=== PATIENT | male | born 1965 | race Caucasian/White ===

== ENCOUNTER 2016-05-10 13:15 | Emergency (ER) | payer SELFPAY ==
--- NOTE | 2016-05-10 13:32 | ED.PDOC ---
History of Present Illness - General Chief Complaint: Neuro Symptoms/Deficits Stated Complaint: Tingling on L arm/leg X3 days that is worsening Time Seen by Provider: 05/10/16 13:28 Source: patient, RN notes reviewed, Vital Signs reviewed - History of Present Illness Initial Comments: Patient reports tingling of L arm and leg for 3 days. Worse at night and getting progressively worse. + slight frontal headache. + dizziness. No weakness or change in gait noted. Vision is more blurred. No change in speech. Timing/Duration: constant, increasing, other - 3 days Severity: mild Improving Factors: nothing Worsening Factors: nothing Associated Symptoms: numbness in legs/feet, paresthesia, tingling in legs/feet, vision changes Allergies/Adverse Reactions: Allergies Penicillins Allergy (Verified 05/10/16 13:58) Home Medications: Ambulatory Orders Amlodipine Besylate 5 mg PO DAILY #30 tab 05/10/16 Lisinopril & Hydrochlorothiazi [Lisinopril/Hctz 20-25 mg] 1 tab PO DAILY Lisinopril & Hydrochlorothiazi [Lisinopril/Hctz 20-25 mg] 1 tab PO DAILY #30 tab 05/10/16 Review of Systems - Review of Systems Constitutional: States: no symptoms reported. Denies: chills, diaphoresis, fever, malaise, weakness EENTM: States: blurred vision. Denies: eye pain, tearing, double vision, ear pain, ear discharge, nose pain, nose congestion, throat pain, throat swelling, mouth pain, mouth swelling Respiratory: States: no symptoms reported. Denies: cough, short of breath Cardiology: States: no symptoms reported. Denies: chest pain, palpitations, syncope Gastrointestinal/Abdominal: States: no symptoms reported. Denies: abdominal pain, nausea, vomiting Musculoskeletal: States: no symptoms reported. Denies: back pain, muscle pain, muscle stiffness, neck pain Skin: States: no symptoms reported Neurological: States: see HPI, headache, paresthesia, tingling. Denies: pre- existing deficit, seizure, tremors, weakness Endocrine: States: no symptoms reported, other - Stopped Thyroid medication 2 months ago due to diarrhea Family Medical History - Family History Father Living Status: Still Living Hx Family Hypertension: No Physical Exam - Physical Exam General Appearance: Alert, Anxious, Comfortable, No apparent distress, Well Developed, Well Groomed, Well Hydrated, Well Nourished Eye Exam: bilateral normal ENT Exam: hearing grossly normal, pharynx normal Neck: non-tender, full range of motion, supple, normal inspection, trachea midline Respiratory: chest non-tender, lungs clear, normal breath sounds, no respiratory distress, no accessory muscle use Cardiovascular/Chest: normal peripheral pulses, regular rate, rhythm, no edema, no gallop, no JVD, no murmur Peripheral Pulses: radial,right: 2+, radial,left: 2+, posterior tibialis,right: 2+, posterior tibialis,left: 2+ Gastrointestinal/Abdominal: normal bowel sounds, non tender, soft, no organomegaly, no pulsatile mass Extremities Exam: non-tender, normal range of motion, no evidence of injury, no edema Mental Status: alert, oriented x 3 solar system installer Exam: normal hearing, normal speech, PERRL Coordination/Gait: normal gait Motor/Sensory: no motor deficit, no sensory deficit, no pronator drift Skin Exam: normal color, warm/dry Progress - Progress Progress: 05/10/16 14:21 Work up so far shows normal CT of head, EKG has no acute changed. Labs showed low Na & Cl and slightly elevated CPK. Will give IV fluids and possibly adjust BP medications. 05/10/16 15:59 BP improved, Symptoms resolved. Advised to increase salt in his diet, decrease alcohol use. Follow up with PCP within a week. Add Amlodipine to his Lisinopril and get BP cuff to monitor at home. - EKG/XRAY/CT EKG: Sinus, no ST T wave changes Comments: NSR with no acute changes. HR 98 Departure - Departure Clinical Impression: Hypertensive urgency, Intermittent paresthesia of left hand and foot Time of Disposition: 16:02 Disposition: Discharge to Home or Self Care Condition: Good Instructions: DI for Malignant Hypertension Diet: resume usual diet, other - Increase salt intake and decrease alcohol intake Activity: increase activity as tolerated Referrals: [Primary Care Provider] - 1 Week Prescriptions: Amlodipine Besylate 5 mg PO DAILY #30 tab Lisinopril & Hydrochlorothiazi [Lisinopril/Hctz 20-25 mg] 1 tab PO DAILY #30 tab Home Medications: Ambulatory Orders Amlodipine Besylate 5 mg PO DAILY #30 tab 05/10/16 Lisinopril & Hydrochlorothiazi [Lisinopril/Hctz 20-25 mg] 1 tab PO DAILY Lisinopril & Hydrochlorothiazi [Lisinopril/Hctz 20-25 mg] 1 tab PO DAILY #30 tab 05/10/16 Additional Instructions: Check blood pressure daily at home and keep log to take to your doctor visit.
--- NOTE | 2016-05-10 14:06 | CT ---
EXAM DESCRIPTION: CT HEAD WITHOUT IV CONTRAST CLINICAL HISTORY: Tingling on L side with dizziness/ R/O stroke COMPARISON: None. TECHNIQUE: Noncontrast transaxial CT images of the head are obtained from base to vertex. CT scan was done according to ALARA (As Low as Reasonably Achievable). FINDINGS: The midline structures are not displaced. The sulci are age appropriate. The lateral, third, and fourth ventricles are normal in size, shape, and anatomic positioning. There is no evidence of mass, mass effect, hydrocephalus, or acute intracranial hemorrhage. No abnormal extra axial fluid collections are seen. Normal dacosta-white differentiation is seen. The visualized bone windows show no depressed skull fracture or significant abnormality. Calcifications of the intracranial carotid arteries are seen. Mild mucosal thickening is seen in the maxillary sinuses bilaterally with question of small air-fluid levels. IMPRESSION: 1. No acute abnormality is seen on noncontrast CT of the head. 2. There is at least mild subacute to chronic sinusitis of the maxillary sinuses with question of air-fluid level suggesting acute sinusitis. Electronically signed by: Jordan Atwood MD 05/10/2016 14:04
[2016-05-10] MEDS ORDERED: SODIUM CHLORIDE 0.9% 1000ML 1,000 ML IVS ONE (14:10)
[2016-05-10] MEDS ORDERED: amLODIPine BESYLATE 5 MG TAB PO ONE (14:45)
[2016-05-10 15:48] VITALS: TEMP 98; O2SAT 95
[2016-05-10 16:17] VITALS: BP 139/96
== END 2016-05-10 16:10 | disposition home or self-care (01) ==
LOC: ER 13:15
DX: I16.0 Hypertensive urgency (principal); R20.2 Paresthesia of skin; Z88.0 Allergy status to penicillin
CPT/HCPCS: 70450; 80053; 82550; 82553; 84484; 85025; 93005; J7030

== ENCOUNTER 2016-06-25 03:08 | Emergency (ER) | payer SELFPAY ==
[2016-06-25] MEDS ORDERED: SODIUM CHLORIDE 0.9% 1000ML 1,000 ML ONE (03:20)
[2016-06-25 03:23] VITALS: TEMP 98.9
--- NOTE | 2016-06-25 03:25 | ED.PDOC ---
History of Present Illness - General Source: patient, RN notes reviewed, Vital Signs reviewed, EMS Exam Limitations: no limitations - History of Present Illness Initial Comments: Patient woke up because "he felt like he was going to pass out". Patient reports that he rolled over in bed, got dizzy and felt like he was going to pass out. Got up and got a drink of water. Continued to feel like he was going to pass out so he called 911. Did nothing out of the ordinary yesterday. He worked, ate dinner and drank 6 beers which according to him is "not much". Timing/Duration: 1/2 hour Severity: moderate Improving Factors: nothing Worsening Factors: nothing Associated Symptoms: chest pain - Mild left sided pressure, now resolvd., other - Feels hot <Renita Hermosillo - Last Filed: 06/25/16 06:01> <Maykel Schmidt - Last Filed: 06/25/16 08:14> - General Chief Complaint: Blood Pressure Problem Stated Complaint: dizzy, high blood pressure Time Seen by Provider: 06/25/16 03:12 - History of Present Illness Allergies/Adverse Reactions: Allergies Penicillins Allergy (Verified 05/10/16 13:58) Home Medications: Ambulatory Orders Amlodipine Besylate 5 mg PO DAILY #30 tab 05/10/16 Lisinopril & Hydrochlorothiazi [Lisinopril/Hctz 20-25 mg] 1 tab PO DAILY Lisinopril & Hydrochlorothiazi [Lisinopril/Hctz 20-25 mg] 1 tab PO DAILY #30 tab 05/10/16 Meclizine HCl [Meclizine 25] 25 mg PO Q6H PRN #20 tab 06/25/16 predniSONE [Prednisone] 20 mg PO DAILY #3 tab 06/25/16 Review of Systems - Review of Systems Constitutional: States: no symptoms reported EENTM: States: no symptoms reported Respiratory: States: no symptoms reported. Denies: short of breath Cardiology: States: chest pain. Denies: edema, palpitations, syncope Gastrointestinal/Abdominal: States: no symptoms reported Genitourinary: States: no symptoms reported Musculoskeletal: States: no symptoms reported Skin: States: no symptoms reported Neurological: States: other - Dizzy, felt like he was going to pass out.. Denies: headache, numbness, paresthesia Endocrine: States: no symptoms reported Hematologic/Lymphatic: States: no symptoms reported <Renita Hermosillo Last Filed: 06/25/16 06:01> Past Medical History (General) - Patient Medical History Hx Stroke: No Hx Asthma: No Hx of COPD: No Hx Congestive Heart Failure: No Hx Hypertension: Yes Hx Thyroid Disease: Yes - Quit taking Thyroid meds - cant afford them Hx Diabetes: No Hx MRSA: No - Vaccination History Hx Tetanus, Diphtheria Vaccination: No Hx Influenza Vaccination: No Hx Pneumococcal Vaccination: No - Social History Hx Tobacco Use: Yes - Dips snuff daily Hx Chewing Tobacco Use: Yes - Daily Hx Alcohol Use: Yes - 12 pack of beers daily <Renita Hermosillo Last Filed: 06/25/16 06:01> Family Medical History - Family History Father Living Status: Still Living Hx Family Hypertension: No <Renita Hermosillo Last Filed: 06/25/16 06:01> Physical Exam - Physical Exam General Appearance: Anxious, No apparent distress, Well Developed, Well Groomed , Well Hydrated, Well Nourished Eye Exam: bilateral normal Ears, Nose, Throat: hearing grossly normal, normal ENT inspection, normal pharynx Neck: non-tender, full range of motion, supple, normal inspection Respiratory: chest non-tender, lungs clear, normal breath sounds, no respiratory distress, no accessory muscle use Cardiovascular/Chest: regular rate, rhythm, no edema, no gallop, no JVD, no murmur Gastrointestinal/Abdominal: normal bowel sounds, non tender, soft, no organomegaly, no pulsatile mass Extremity: normal range of motion, non-tender, normal inspection, no pedal edema Neurologic: no motor/sensory deficits, alert, normal mood/affect, oriented x 3 Skin Exam: diaphoresis Lymphatic: no adenopathy <Renita Hermosillo Last Filed: 06/25/16 06:01> Progress - Progress Progress: 06/25/16 03:31 Patient is very anxious. Will give Ativan. 06/25/16 04:04 Patient reports he is feeling better, calmer after the Ativan. BP and pulse are still elevated. Will give dose of Labetolol 06/25/16 04:05 Initial set of cardiac enzymes show elevated CPK and CK-MB with normal Troponin. Will repeat cardiac enzymes in 3 hours. 06/25/16 04:23 BP improved @ 143/99 with HR 95 Patient is sleeping comfortably 06/25/16 06:02 BP 160/105 - EKG/XRAY/CT EKG: Sinus, Tachy, Unchanged from - 05/10/16 Comments: with PVC's <Renita Hermosillo - Last Filed: 06/25/16 06:01> - Progress Progress: 06/25/16 08:06 06/25/16 03:30 EKG STAT Laboratory Results - last 24 hr 06/25/16 06/25/16 03:30 07:09 WBC 5.5 RBC 5.00 Hgb 15.0 Hct 44.6 MCV 89.2 MCH 29.9 MCHC 33.6 RDW 14.8 H Plt Count 182 MPV 6.7 L Absolute Neuts (auto) 4.20 Absolute Lymphs (auto) 0.70 L Absolute Monos (auto) 0.50 Absolute Eos (auto) 0.00 Absolute Basos (auto) 0.00 Neutrophils % 76.6 Lymphocytes % 13.3 L Monocytes % 9.2 H Eosinophils % 0.2 L Basophils % 0.7 Sodium 135 Potassium 3.8 Chloride 102 Carbon Dioxide 23 Anion Gap 13.8 BUN 11 Creatinine 0.99 BUN/Creatinine Ratio 11.1 Random Glucose 138 H Serum Osmolality 271.7 L Calcium 9.0 Total Bilirubin 0.8 AST 175 H ALT 181 H Alkaline Phosphatase 58 Creatine Kinase 399 H* 320 H* CK-MB (CK-2) 6.5 H* 5.2 H* CK-MB (CK-2) % 1.63 1.63 Troponin I < 0.02 < 0.02 Serum Total Protein 7.8 Albumin 4.4 Globulin 3.4 Albumin/Globulin Ratio 1.3 Urine Opiates Screen Negative Urine Barbiturates Negative Ur Phencyclidine Scrn Negative U Amphetamin/Meth Scrn Negative U Benzodiazepines Scrn Negative U Cocaine Metab Screen Negative U Cannabinoids Screen Negative Ethyl Alcohol 27.20 chest x-ray appears benign. Head impulse test shows a delayed eye correction with rapid turn to the right. No evidence of vertical skew deviation. No abnormal vertical or rotational nystagmus. Nystagmus appears to be horizontal. The patient is a 51-year-old male presenting to the emergency room with acute onset dizziness. The patient appears to have an acute vestibular syndrome. Head impulse testing, nystagmus and skew deviation testing are consistent with this diagnosis rather than a stroke. Blood pressure is up but is likely a stress reaction. The patient was placed on prednisone 20 mg daily for the next 3 days and he will also be written for some meclizine for as needed use for the next few days. He needs to keep himself well hydrated and avoid alcohol. He also needs to take 2 Centrum Silver tablets daily for the next 2 months. ER warnings were given for any acute worsening. He needs to avoid driving while he is still having significant dizziness. He needs to follow-up with his primary care doctor preferably before the weekend for follow- up of symptoms and recheck of blood pressure. <Maykel Schmidt - Last Filed: 06/25/16 08:14> Departure <Renita Hermosillo - Last Filed: 06/25/16 06:01> - Departure Diet: regular diet Activity: increase activity as tolerated <Maykel Schmidt - Last Filed: 06/25/16 08:14> - Departure Clinical Impression: Vertiginous syndromes and other disorders of vestibular system Qualifiers: Laterality: right Qualifier Code: (H81.8X1) Other disorders of vestibular function, right ear Disposition: Discharge to Home or Self Care Condition: Fair Departure Forms: ED Discharge - Pt. Copy, Patient Portal Self Enrollment Instructions: DI for High Blood Pressure, DI for Meniere's Disease Referrals: [Primary Care Provider] - 1-2 Weeks Prescriptions: Meclizine HCl [Meclizine 25] 25 mg PO Q6H PRN #20 tab PRN Reason: Dizziness predniSONE [Prednisone] 20 mg PO DAILY #3 tab Home Medications: Ambulatory Orders Amlodipine Besylate 5 mg PO DAILY #30 tab 05/10/16 Lisinopril & Hydrochlorothiazi [Lisinopril/Hctz 20-25 mg] 1 tab PO DAILY Lisinopril & Hydrochlorothiazi [Lisinopril/Hctz 20-25 mg] 1 tab PO DAILY #30 tab 05/10/16 Meclizine HCl [Meclizine 25] 25 mg PO Q6H PRN #20 tab 06/25/16 predniSONE [Prednisone] 20 mg PO DAILY #3 tab 06/25/16 Additional Instructions: The patient is a 51-year-old male presenting to the emergency room with acute onset dizziness. The patient appears to have an acute vestibular syndrome. Head impulse testing, nystagmus and skew deviation testing are consistent with this diagnosis rather than a stroke. Blood pressure is up but is likely a stress reaction. The patient was placed on prednisone 20 mg daily for the next 3 days and he will also be written for some meclizine for as needed use for the next few days. He needs to keep himself well hydrated and avoid alcohol. He also needs to take 2 Centrum Silver tablets daily for the next 2 months. ER warnings were given for any acute worsening. He needs to avoid driving while he is still having significant dizziness. He needs to follow-up with his primary care doctor preferably before the weekend for follow- up of symptoms and recheck of blood pressure. The patient does have some tinnitus and at some point should see an ear nose and throat doctor for evaluation to prevent hearing loss in the long run.
[2016-06-25] MEDS ORDERED: LABETALOL INJ 5 MG/ML VIAL IV ONE (04:04)
[2016-06-25] MEDS ORDERED: amLODIPine BESYLATE 5 MG TAB PO ONE (05:09)
[2016-06-25 08:27] VITALS: BP 154/105; O2SAT 95
== END 2016-06-25 08:27 | disposition home or self-care (01) ==
LOC: ER 03:08
DX: H81.8X1 Other disorders of vestibular function, right ear (principal); I10 Essential (primary) hypertension; E07.9 Disorder of thyroid, unspecified; Z88.0 Allergy status to penicillin
CPT/HCPCS: 36415; 80053; 80307; 80320; 82550; 82553; 84484; 85025; 93005; J2060; J7030

== ENCOUNTER → 2016-10-07 | Outpatient (CLI) | payer SELFPAY | END | disposition home or self-care (01) | LOC: YCFC.O 09:39 | PROVIDERS: ATTEND Nurse Practitioner Family | DX: E03.9 Hypothyroidism, unspecified (principal); I10 Essential (primary) hypertension; F10.20 Alcohol dependence, uncomplicated; H81.03 Meniere's disease, bilateral ==

== ENCOUNTER 2016-11-03 18:13 | Emergency (ER) | payer SELFPAY ==
[2016-11-03] MEDS ORDERED: SODIUM CHLORIDE 0.9% 1000ML 1,000 ML IVS ONE ×2 (18:28→18:29)
[2016-11-03] MEDS ORDERED: ASPIRIN TABLET 325 MG TAB PO ONE (18:28)
[2016-11-03] MEDS ORDERED: LIDOCAINE VIS-MYLANTA 30 ML UD PO ONE (18:28)
[2016-11-03] MEDS ORDERED: PANTOPRAZOLE SODIUM IV 40 MG VIAL IV ONE (18:28)
[2016-11-03] MEDS ORDERED: MAGNESIUM SULFATE PREMIX 2GM 2 GM in PREMIX BAG 1 BAG IVPB ONE (19:05)
--- NOTE | 2016-11-03 19:12 | RAD ---
EXAM: Abdomen Series CLINICAL INDICATION: 51-year-old male with chest pain, nausea and vomiting. TECHNIQUE: Single view, PA chest was obtained. Two views of the abdomen were obtained in upright and supine positioning. COMPARISON: None. FINDINGS: Chest: Unremarkable cardiac and mediastinal silhouette. Heart size is normal. Lungs are clear without focal opacity, pneumothorax or pleural effusions. Irregularity of the RIGHT posterior lateral rib suggests sequela of prior rib fracture. Abdomen: Gas is seen within normal caliber large bowel. Paucity of small bowel gas. No free air is identified. There are no abnormal calcifications. The osseous structures are within normal limits. IMPRESSION: 1. No acute cardiopulmonary abnormalities. 2. Nonspecific abdominal bowel gas pattern. Electronically signed by: Bailey Aguirre MD 11/03/2016 7:10 PM CDT Workstation: [id number]
[2016-11-03] MEDS ORDERED: MORPHINE SULFATE INJ 10 MG/ML VIAL IV ONE (19:17)
[2016-11-03] MEDS ORDERED: SUCRALFATE 1 GM/10 ML 1 GM UD PO ONE ×2 (19:17→23:01)
[2016-11-03] MEDS ORDERED: POTASSIUM CHLORIDE ELIXIR 20 MEQ/15 ML UD PO ONE (19:17)
[2016-11-03] MEDS ORDERED: METOPROLOL TARTRATE 25 MG TAB PO ONE (19:17)
[2016-11-03] MEDS ORDERED: ONDANSETRON ODT 8 MG TAB SL ONE (19:18)
[2016-11-03] MEDS ORDERED: MAGNESIUM SULFATE PREMIX 2GM 50 ML IVPB ONE (19:29)
[2016-11-03 20:05] VITALS: O2SAT 97
[2016-11-03] MEDS ORDERED: ALUMINUM & MAGNESIUM HYDROXIDE 30 ML UD PO ONE ×2 (20:37→23:01)
--- NOTE | 2016-11-03 23:05 | ED.PDOC ---
History of Present Illness - General Chief Complaint: Cardiovascular Problem Stated Complaint: chest pain Time Seen by Provider: 11/03/16 18:21 Source: patient Exam Limitations: no limitations - History of Present Illness Initial Comments: he patient is a 51-year-old male presenting to emergency room secondary to chest pain that started approximately an hour prior to arrival. Chest pain is actually upper substernal. No palpitations. No shortness of breath. It is not made worse with activity. It does hurt to take a deep breath. The patient spent most of the previous night throwing up with diarrhea. No blood and no bile. No definite fevers. He does feel dehydrated. The patient does drink significantly on a daily basis. He does have a significant history of gastritis and reflux which has not been treated with any medications. No syncope or near-syncope. The pain is not made worse with sitting up or lying back. Onset was while the patient was a rest. Timing/Duration: unsure Severity: moderate Improving Factors: medication Worsening Factors: nothing Associated Symptoms: chest pain, diaphoresis, loss of appetite, malaise, nausea/ vomiting Allergies/Adverse Reactions: Allergies Penicillins Allergy (Verified 11/03/16 18:46) Home Medications: Ambulatory Orders Amlodipine Besylate 5 mg PO DAILY #30 tab 05/10/16 Lisinopril & Hydrochlorothiazi [Lisinopril/Hctz 20-25 mg] 1 tab PO DAILY Lisinopril & Hydrochlorothiazi [Lisinopril/Hctz 20-25 mg] 1 tab PO DAILY #30 tab 05/10/16 Meclizine HCl [Meclizine 25] 25 mg PO Q6H PRN #20 tab 06/25/16 predniSONE [Prednisone] 20 mg PO DAILY #3 tab 06/25/16 Famotidine 20 mg PO BID #60 tab 11/03/16 Ondansetron [Zofran Odt] 4 mg PO Q4H PRN #10 tab 11/03/16 Sucralfate Tab [Carafate Tab] 1 gm PO QID #120 tab 11/03/16 Review of Systems - Review of Systems Constitutional: States: malaise, weakness EENTM: States: no symptoms reported Respiratory: States: no symptoms reported Cardiology: States: chest pain Gastrointestinal/Abdominal: States: abdominal pain, diarrhea, nausea, vomiting Genitourinary: States: no symptoms reported Musculoskeletal: States: no symptoms reported Skin: States: no symptoms reported Neurological: States: no symptoms reported Endocrine: States: excessive sweating All other Systems: No Change from Baseline Past Medical History (General) - Patient Medical History Hx Seizures: No Hx Stroke: No Hx Dementia: No Hx Asthma: No Hx of COPD: No Hx Cardiac Disorders: No Hx Congestive Heart Failure: No Hx Pacemaker: No Hx Hypertension: Yes Hx Thyroid Disease: Yes Hx Diabetes: No Hx Gastroesophageal Reflux: No Hx Renal Disease: No Hx Cancer: No Hx of HIV: No Hx Hepatitis C: No Hx MRSA: No - Vaccination History Hx Tetanus, Diphtheria Vaccination: No Hx Influenza Vaccination: No Hx Pneumococcal Vaccination: No - Social History Hx Tobacco Use: Yes - Dips snuff daily Hx Chewing Tobacco Use: Yes - Daily Hx Alcohol Use: Yes - 30 pack of beers daily Hx Substance Use: No Hx Substance Use Treatment: No Hx Depression: No Hx Physical Abuse: No Hx Emotional Abuse: No Hx Suspected Abuse: No - Activities of Daily Living Hospice Agency (if applicable):: None - Female History Patient is a Female of Child Bearing Age (10 -59 yrs old): No Patient : No Family Medical History - Family History Father Family History: Unknown Living Status: Still Living Hx Family Hypertension: No Physical Exam - Physical Exam General Appearance: Alert, Anxious Eye Exam: bilateral normal Ears, Nose, Throat: hearing grossly normal, normal ENT inspection, normal pharynx Neck: non-tender, full range of motion, supple Respiratory: chest non-tender, lungs clear, normal breath sounds, no respiratory distress, no accessory muscle use Cardiovascular/Chest: normal peripheral pulses, no edema, tachycardia - ild sinus tachycardia Peripheral Pulses: radial,right: 2+, radial,left: 2+, dorsalis pedis,right: 2+, dorsalis pedis,left: 2+ Gastrointestinal/Abdominal: soft, other - pigastric discomfort palpation Rectal Exam: deferred Back Exam: normal inspection, no CVA tenderness, no vertebral tenderness Extremity: normal range of motion, non-tender, normal inspection, no pedal edema , normal capillary refill 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, no motor/sensory deficits, alert, normal mood/affect, oriented x 3 Skin Exam: normal color Comments: Vital Signs - 24 hr 11/03/16 11/03/1617 18:35 18:47 19:44 Temperature 98.0 F Pulse Rate [ 102 H 102 H 94 H pulse ox] Respiratory 24 22 Rate Blood Pressure 154/114 170/123 [left arm] O2 Sat by Pulse 96 Oximetry 11/03/16 11/03/16 19:45 20:01 Temperature Pulse Rate [ 77 107 H pulse ox] Respiratory 22 22 Rate Blood Pressure 170/123 156/102 [left arm] O2 Sat by Pulse 93 L 97 Oximetry Progress - Progress Progress: 11/03/16 23:06 the patient is a 51-year-old male presenting to the emergency room with upper substernal chest pain that is most likely related to esophagitis. The patient appears to have had a significant gastroenteritis over the last 24- 36 hrs giving him significant nausea vomiting and diarrhea. He does also appear to have had a significant baseline gastroesophageal reflux disease problem. The patient needs to reduce his alcohol intake. The patient has responded nicely to GI medications here. Cardiac enzymes are negative 2 and EKGs are reassuring. He does need to get set up in the next few weeks for an exercise tolerance test for cardiac risk stratification. The patient will be placed on Pepcid twice daily for the next month along with Carafate 4 times daily for the next month. He is to take Maalox additionally as needed over the next week to control symptoms. ER warnings were given for any worsening. He needs to follow-up with his primary care doctor early this coming week. He needs to follow his blood pressures. he will be written for Zofran to control any significant nausea and vomiting. he needs to keep well-hydrated. - Results/Orders Results/Orders: Laboratory Tests 11/03/16 11/03/16 11/03/16 18:30 18:30 18:30 WBC 6.6 RBC 4.89 Hgb 15.0 Hct 45.2 MCV 92.5 MCH 30.7 MCHC 33.2 RDW 14.1 Plt Count 211 MPV 6.7 L Absolute Neuts (auto) 4.00 Absolute Lymphs (auto) 1.80 Absolute Monos (auto) 0.60 Absolute Eos (auto) 0.10 Absolute Basos (auto) 0.10 Neutrophils % 60.9 Lymphocytes % 27.1 Monocytes % 9.9 H Eosinophils % 1.2 Basophils % 0.9 PT 12.0 INR 1.060 PTT (SP) 26.2 Sodium 130 L Potassium 3.4 L Chloride 97 L Carbon Dioxide 21 Anion Gap 15.4 BUN 9 Creatinine 0.97 BUN/Creatinine Ratio 9.3 L Random Glucose 146 H Serum Osmolality 262.1 L Calcium 8.6 Magnesium 1.6 L Total Bilirubin 0.6 AST 89 H ALT 180 H Alkaline Phosphatase 49 Creatine Kinase 226 H* CK-MB (CK-2) 4.6 H* CK-MB (CK-2) % 2.04 Troponin I < 0.02 B-Natriuretic Peptide 39.9 Serum Total Protein 8.0 Albumin 4.3 Globulin 3.7 H Albumin/Globulin Ratio 1.2 Amylase 36 Lipase 43 Urine Color Urine Appearance Urine pH Ur Specific [place] Urine Protein Urine Glucose (UA) Urine Ketones Urine Blood Urine Nitrite Urine Bilirubin Urine Urobilinogen Ur Leukocyte Esterase Urine RBC Urine WBC Ur Epithelial Cells Urine Bacteria 11/03/16 11/03/16 19:20 21:40 WBC RBC Hgb Hct MCV MCH MCHC RDW Plt Count MPV Absolute Neuts (auto) Absolute Lymphs (auto) Absolute Monos (auto) Absolute Eos (auto) Absolute Basos (auto) Neutrophils % Lymphocytes % Monocytes % Eosinophils % Basophils % PT INR PTT (SP) Sodium Potassium Chloride Carbon Dioxide Anion Gap BUN Creatinine BUN/Creatinine Ratio Random Glucose Serum Osmolality Calcium Magnesium Total Bilirubin AST ALT Alkaline Phosphatase Creatine Kinase 214 H* CK-MB (CK-2) 4.3 CK-MB (CK-2) % Not Reportable Troponin I < 0.02 B-Natriuretic Peptide Serum Total Protein Albumin Globulin Albumin/Globulin Ratio Amylase Lipase Urine Color Yellow Urine Appearance Clear Urine pH 5.5 Ur Specific [place] <= 1.005 Urine Protein Negative Urine Glucose (UA) Negative Urine Ketones Negative Urine Blood Negative Urine Nitrite Negative Urine Bilirubin Negative Urine Urobilinogen 0.2 Ur Leukocyte Esterase Negative Urine RBC 0 Urine WBC 0 Ur Epithelial Cells 0 Urine Bacteria 0 acute abdominal series appears benign. Initial and repeat EKG shows slow R- wave progression. No acute ST segment changes concerning for ischemia. There are occasional PVCs. He was initially mildly tachycardic. Normal QT interval. Normal NE interval. Departure - Departure Clinical Impression: Esophagitis, Gastroenteritis Disposition: Discharge to Home or Self Care Condition: Fair Departure Forms: ED Discharge - Pt. Copy, Patient Portal Self Enrollment Instructions: DI for Esophagitis, DI for Viral Gastroenteritis -- Adult Diet: bland diet Activity: increase activity as tolerated Referrals: Chelle Quiñonez FNP [Primary Care Provider] - 1-2 Days Prescriptions: Famotidine 20 mg PO BID #60 tab Ondansetron [Zofran Odt] 4 mg PO Q4H PRN #10 tab PRN Reason: Vomiting Sucralfate Tab [Carafate Tab] 1 gm PO QID #120 tab Home Medications: Ambulatory Orders Amlodipine Besylate 5 mg PO DAILY #30 tab 05/10/16 Lisinopril & Hydrochlorothiazi [Lisinopril/Hctz 20-25 mg] 1 tab PO DAILY Lisinopril & Hydrochlorothiazi [Lisinopril/Hctz 20-25 mg] 1 tab PO DAILY #30 tab 05/10/16 Meclizine HCl [Meclizine 25] 25 mg PO Q6H PRN #20 tab 06/25/16 predniSONE [Prednisone] 20 mg PO DAILY #3 tab 06/25/16 Famotidine 20 mg PO BID #60 tab 11/03/16 Ondansetron [Zofran Odt] 4 mg PO Q4H PRN #10 tab 11/03/16 Sucralfate Tab [Carafate Tab] 1 gm PO QID #120 tab 11/03/16 Additional Instructions: the patient is a 51-year-old male presenting to the emergency room with upper substernal chest pain that is most likely related to esophagitis. The patient appears to have had a significant gastroenteritis over the last 24- 36 hrs giving him significant nausea vomiting and diarrhea. He does also appear to have had a significant baseline gastroesophageal reflux disease problem. The patient needs to reduce his alcohol intake. The patient has responded nicely to GI medications here. Cardiac enzymes are negative 2 and EKGs are reassuring. He does need to get set up in the next few weeks for an exercise tolerance test for cardiac risk stratification. The patient will be placed on Pepcid twice daily for the next month along with Carafate 4 times daily for the next month. He is to take Maalox additionally as needed over the next week to control symptoms. ER warnings were given for any worsening. He needs to follow-up with his primary care doctor early this coming week. He needs to follow his blood pressures. he will be written for Zofran to control any significant nausea and vomiting. he needs to keep well-hydrated.
[2016-11-03] MEDS ORDERED: FAMOTIDINE 20 MG TAB ONE (23:21)
[2016-11-04 00:01] VITALS: BP 149/105; TEMP 97.8
[2016-11-04] MEDS ORDERED: FAMOTIDINE 20 MG TAB PO ONE (23:01)
== END 2016-11-03 23:55 | disposition home or self-care (01) ==
LOC: ER 18:13
DX: K52.9 Noninfective gastroenteritis and colitis, unspecified (principal); K20.9 Esophagitis, unspecified; F17.220 Nicotine dependence, chewing tobacco, uncomplicated; I10 Essential (primary) hypertension; E07.9 Disorder of thyroid, unspecified; Z79.899 Other long term (current) drug therapy; Z88.0 Allergy status to penicillin
CPT/HCPCS: 36415; 74020; 80053; 81001; 82150; 82550; 82553; 83690; 83735; 83880; 84484; 85025; 85610; 85730; 93005; J2270; J3475; J7030

== ENCOUNTER 2016-11-07 13:11 | Emergency (ER) | payer SELFPAY ==
[2016-11-07] MEDS ORDERED: SPIRONOLACTONE 25 MG TAB PO ONE (13:27)
[2016-11-07] MEDS ORDERED: ALPRAZolam 0.25 MG TAB PO ONE (13:27)
[2016-11-07] MEDS ORDERED: METOPROLOL TARTRATE 50 MG TAB PO ONE (13:27)
[2016-11-07 14:28] VITALS: TEMP 98.7
--- NOTE | 2016-11-07 14:57 | ED.PDOC ---
History of Present Illness - General Chief Complaint: Cardiovascular Problem Stated Complaint: high blood pressure Time Seen by Provider: 11/07/16 13:18 Source: patient Exam Limitations: no limitations - History of Present Illness Initial Comments: the patient is a 51-year-old male presenting to the emergency room secondary to feeling like his blood pressure is running too high. On his checks from home his systolic blood pressure ranges [id number]. His diastolic blood pressures have been ranging from 100-140. The patient was recently started on metoprolol at 25 mg twice a day 3 days ago. He was seen here for some chest discomfort after a gastroenteritis before that. He has recently dramatically decreased his drinking He is also not had a dose of Xanax in a little while. The patient is not having any chest pain or shortness of breath but he says he can just feel that his blood pressure is up. Timing/Duration: 4-6 hours Severity: moderate Improving Factors: nothing Worsening Factors: nothing Associated Symptoms: denies symptoms Allergies/Adverse Reactions: Allergies Penicillins Allergy (Verified 11/07/16 13:59) Home Medications: Ambulatory Orders Amlodipine Besylate 5 mg PO DAILY #30 tab 05/10/16 Lisinopril & Hydrochlorothiazi [Lisinopril/Hctz 20-25 mg] 1 tab PO DAILY Lisinopril & Hydrochlorothiazi [Lisinopril/Hctz 20-25 mg] 1 tab PO DAILY #30 tab 05/10/16 Meclizine HCl [Meclizine 25] 25 mg PO Q6H PRN #20 tab 06/25/16 predniSONE [Prednisone] 20 mg PO DAILY #3 tab 06/25/16 Famotidine 20 mg PO BID #60 tab 11/03/16 Ondansetron [Zofran Odt] 4 mg PO Q4H PRN #10 tab 11/03/16 Sucralfate Tab [Carafate Tab] 1 gm PO QID #120 tab 11/03/16 Spironolactone 25 mg PO DAILY #30 tab 11/07/16 Review of Systems - Review of Systems Constitutional: States: malaise EENTM: States: no symptoms reported Respiratory: States: no symptoms reported Cardiology: States: no symptoms reported Gastrointestinal/Abdominal: States: no symptoms reported Genitourinary: States: no symptoms reported Musculoskeletal: States: no symptoms reported Skin: States: no symptoms reported Neurological: States: anxiety Endocrine: States: no symptoms reported All other Systems: No Change from Baseline Past Medical History (General) - Patient Medical History Hx Seizures: No Hx Stroke: No Hx Dementia: No Hx Asthma: No Hx of COPD: No Hx Cardiac Disorders: No Hx Congestive Heart Failure: No Hx Pacemaker: No Hx Hypertension: Yes Hx Thyroid Disease: Yes Hx Diabetes: No Hx Gastroesophageal Reflux: No Hx Renal Disease: No Hx Cancer: No Hx of HIV: No Hx Hepatitis C: No Hx MRSA: No - Vaccination History Hx Tetanus, Diphtheria Vaccination: No Hx Influenza Vaccination: No Hx Pneumococcal Vaccination: No - Social History Hx Tobacco Use: Yes - Dips snuff daily Hx Chewing Tobacco Use: Yes - Daily Hx Alcohol Use: Yes - 30 pack of beers daily Hx Substance Use: No Hx Substance Use Treatment: No Hx Depression: No Hx Physical Abuse: No Hx Emotional Abuse: No Hx Suspected Abuse: No - Activities of Daily Living Hospice Agency (if applicable):: None - Female History Patient is a Female of Child Bearing Age (10 -59 yrs old): No Patient : No Family Medical History - Family History Father Family History: Unknown Living Status: Still Living Hx Family Hypertension: No Physical Exam - Physical Exam General Appearance: Alert, Anxious, No apparent distress Eye Exam: bilateral normal Ears, Nose, Throat: hearing grossly normal, normal ENT inspection, normal pharynx Neck: non-tender, full range of motion, supple Respiratory: chest non-tender, lungs clear, normal breath sounds, no respiratory distress, no accessory muscle use Cardiovascular/Chest: normal peripheral pulses, regular rate, rhythm, no edema Peripheral Pulses: radial,right: 2+, radial,left: 2+, dorsalis pedis,right: 2+, dorsalis pedis,left: 2+ Gastrointestinal/Abdominal: non tender - obese, soft Back Exam: normal inspection, no CVA tenderness, no vertebral tenderness Extremity: normal range of motion, non-tender, normal inspection, no pedal edema , no calf tenderness, normal capillary refill 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 Hypertension may be currently being worsened by some alcohol withdrawal. The patient is to gradually taper down his alcohol intake over the next couple of weeks. Additionally intermittent clonidine use may be complicating his control due to rebound issues. For now he is to take the clonidine scheduled twice daily. He is also to increase his metoprolol to 50 mg twice daily. He is also going to be written for spironolactone 25 mg to take in the morning. The patient's blood pressure responded nicely here to an extra dose of Lopressor, a dose of spironolactone, and a small dose of Xanax. The patient needs to keep follow-up with his primary care doctor next week. Also he should start taking a multivitamin such as Centrum Silver once daily. ER warnings are given for any worsening. Departure - Departure Clinical Impression: Hypertensive urgency Disposition: Discharge to Home or Self Care Condition: Fair Departure Forms: ED Discharge - Pt. Copy, Patient Portal Self Enrollment Instructions: DI for Malignant Hypertension Diet: regular diet Activity: increase activity as tolerated Referrals: Chelle Quiñonez FNP [Primary Care Provider] - 1-5 Days Prescriptions: Spironolactone 25 mg PO DAILY #30 tab Home Medications: Ambulatory Orders Amlodipine Besylate 5 mg PO DAILY #30 tab 05/10/16 Lisinopril & Hydrochlorothiazi [Lisinopril/Hctz 20-25 mg] 1 tab PO DAILY Lisinopril & Hydrochlorothiazi [Lisinopril/Hctz 20-25 mg] 1 tab PO DAILY #30 tab 05/10/16 Meclizine HCl [Meclizine 25] 25 mg PO Q6H PRN #20 tab 06/25/16 predniSONE [Prednisone] 20 mg PO DAILY #3 tab 06/25/16 Famotidine 20 mg PO BID #60 tab 11/03/16 Ondansetron [Zofran Odt] 4 mg PO Q4H PRN #10 tab 11/03/16 Sucralfate Tab [Carafate Tab] 1 gm PO QID #120 tab 11/03/16 Spironolactone 25 mg PO DAILY #30 tab 11/07/16 Additional Instructions: the patient is a 51-year-old male presenting to the emergency room secondary to uncontrolled hypertension. Hypertension may be currently being worsened by some alcohol withdrawal. The patient is to gradually taper down his alcohol intake over the next couple of weeks. Additionally intermittent clonidine use may be complicating his control due to rebound issues. For now he is to take the clonidine scheduled twice daily. He is also to increase his metoprolol to 50 mg twice daily. He is also going to be written for spironolactone 25 mg to take in the morning. The patient's blood pressure responded nicely here to an extra dose of Lopressor, a dose of spironolactone, and a small dose of Xanax. The patient needs to keep follow-up with his primary care doctor next week. Also he should start taking a multivitamin such as Centrum Silver once daily. ER warnings are given for any worsening. the patient will need to have his potassium level checked within the next couple of weeks.
[2016-11-07] MEDS ORDERED: IPRATROPIUM/ALBUTEROL 3 ML VIAL NEB ONE (15:22)
[2016-11-07 15:29] VITALS: BP 141/99; O2SAT 97
== END 2016-11-07 15:15 | disposition home or self-care (01) ==
LOC: ER 13:11
DX: I16.0 Hypertensive urgency (principal); F17.220 Nicotine dependence, chewing tobacco, uncomplicated; E07.9 Disorder of thyroid, unspecified; Z79.899 Other long term (current) drug therapy; Z88.0 Allergy status to penicillin

== ENCOUNTER 2017-07-17 19:12 | Emergency (ER) | payer SELFPAY ==
[2017-07-17] MEDS ORDERED: CHLORHEXIDINE GLUCONATE 4 % 15 ML UD TOP ONE ×2 (19:18→19:29)
[2017-07-17] MEDS ORDERED: LIDOCAINE 1% 10 ML VIAL INJ ONE ×2 (19:28→19:36)
[2017-07-17 19:38] VITALS: BP 111/55; TEMP 98.2; O2SAT 95
[2017-07-17] MEDS ORDERED: NEOMYCIN-BACITRACIN-POLYMYXIN 0.9 GM UD TOP ONE (19:55)
--- NOTE | 2017-07-17 19:59 | ED.PDOC ---
History of Present Illness - General Chief Complaint: Skin/Abrasion/Tear Stated Complaint: caught in raciel wire fence Time Seen by Provider: 07/17/17 19:56 Source: patient Exam Limitations: no limitations - History of Present Illness Initial Comments: patient has second barbed wire and suffered several lacerations and abrasions to his face and right side of his body. 2 large lacerations were open and gaping but he came in for sutures. He had no altered LOC. Considerable bleeding off of the upper laceration that has now stopped after pressure. He has received a tetanus shot in the last 10 years and his only medical history is hypertension. He has no fever, chills, cough or cold symptoms. Timing/Duration: momentarily Severity: severe Improving Factors: nothing Worsening Factors: nothing Associated Symptoms: denies symptoms Allergies/Adverse Reactions: Allergies Penicillins Allergy (Verified 11/07/16 13:59) Home Medications: Ambulatory Orders Amlodipine Besylate 5 mg PO DAILY #30 tab 05/10/16 Lisinopril & Hydrochlorothiazi [Lisinopril/Hctz 20-25 mg] 1 tab PO DAILY Lisinopril & Hydrochlorothiazi [Lisinopril/Hctz 20-25 mg] 1 tab PO DAILY #30 tab 05/10/16 Meclizine HCl [Meclizine 25] 25 mg PO Q6H PRN #20 tab 06/25/16 predniSONE [Prednisone] 20 mg PO DAILY #3 tab 06/25/16 Famotidine 20 mg PO BID #60 tab 11/03/16 Ondansetron [Zofran Odt] 4 mg PO Q4H PRN #10 tab 11/03/16 Sucralfate Tab [Carafate Tab] 1 gm PO QID #120 tab 11/03/16 Spironolactone 25 mg PO DAILY #30 tab 11/07/16 Review of Systems - Review of Systems Constitutional: States: no symptoms reported EENTM: States: no symptoms reported Respiratory: States: no symptoms reported Cardiology: States: no symptoms reported Gastrointestinal/Abdominal: States: no symptoms reported Genitourinary: States: no symptoms reported Musculoskeletal: States: no symptoms reported Skin: States: see HPI Past Medical History (General) - Patient Medical History Hx Seizures: No Hx Stroke: No Hx Dementia: No Hx Asthma: Yes - as child Hx of COPD: No Hx Cardiac Disorders: Yes - Irreg heart rate Hx Congestive Heart Failure: No Hx Pacemaker: No Hx Hypertension: Yes Hx Thyroid Disease: Yes Hx Diabetes: No Hx Gastroesophageal Reflux: No Hx Renal Disease: No Hx Cancer: No Hx of HIV: No Hx Hepatitis C: No Hx MRSA: No Surgical History: other - Vaccination History Hx Tetanus, Diphtheria Vaccination: No Hx Influenza Vaccination: No Hx Pneumococcal Vaccination: No - Social History Hx Tobacco Use: Yes - Dips snuff daily Hx Chewing Tobacco Use: Yes - Daily Tins Per Day Chewed: 2 Hx Alcohol Use: Yes - 30 pack of beers daily Hx Substance Use: No Hx Substance Use Treatment: No Hx Depression: No Hx Physical Abuse: No Hx Emotional Abuse: No Hx Suspected Abuse: No - Female History Patient : No Family Medical History - Family History Father Family History: Unknown Living Status: Still Living Hx Family Hypertension: No Physical Exam - Physical Exam General Appearance: No apparent distress Eye Exam: bilateral normal Respiratory: chest non-tender, lungs clear, normal breath sounds, no respiratory distress Cardiovascular/Chest: normal peripheral pulses, regular rate, rhythm, no edema, no gallop, no JVD, no murmur Gastrointestinal/Abdominal: normal bowel sounds, non tender, soft, no organomegaly, no pulsatile mass, abnormal bowel sounds Extremity: other - she has lacerations as per skin exam on the right hand. 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 Patient has normal sensation and good radial pulse and good capillary refill Skin Exam: other - small superficial scrapes over his right arm and right cheek lacerations. The first is 4 cm 4 cm distal from the brachial fold it goes through the subcutaneous tissue with a half a centimeter deep wound seconds large lower laceration is 3.5 cm on one linear plane creating a V of 1.5 cm on the Procedures - Laceration/Wound Repair Arm Wound Length (cm): 4 Wound's Depth, Shape: into muscle Wound Explored: contaminated Irrigated w/ Saline (cc's): 25 Betadine Prep?: Yes Anesthesia: 1% Lidocaine Volume Anesthetic (cc's): 10 Wound Debrided: moderate Wound Repaired With: sutures Suture Size/Type: 3:0, prolene Number of Sutures: 5 Layer Closure?: Yes Deep Layer Suture Size/Type: 4:0, vicryl Number Deep Layer Sutures: 2 Sterile Dressing Applied?: Yes Right Lower Arm Wound Length (cm): 3.5 Wound's Depth, Shape: superficial Wound Explored: contaminated Irrigated w/ Saline (cc's): 25 Betadine Prep?: Yes Anesthesia: 1% Lidocaine Volume Anesthetic (cc's): 7 Wound Debrided: moderate Wound Repaired With: sutures Suture Size/Type: 4:0, prolene Number of Sutures: 7 Layer Closure?: No Departure - Departure Clinical Impression: Laceration of arm, right, multiple sites Qualifiers: Encounter type: initial encounter Qualified Code(s): S41.111A - Laceration without foreign body of right upper arm, initial encounter Disposition: Discharge to Home or Self Care Condition: Good Departure Forms: ED Discharge - Pt. Copy, Patient Portal Self Enrollment Instructions: DI for Abrasion Diet: regular diet Activity: may shower, no tub bath Referrals: Chelle Quiñonez, YARN INSPECTOR [Primary Care Provider] - 1-2 Weeks Home Medications: Ambulatory Orders Amlodipine Besylate 5 mg PO DAILY #30 tab 05/10/16 Lisinopril & Hydrochlorothiazi [Lisinopril/Hctz 20-25 mg] 1 tab PO DAILY Lisinopril & Hydrochlorothiazi [Lisinopril/Hctz 20-25 mg] 1 tab PO DAILY #30 tab 05/10/16 Meclizine HCl [Meclizine 25] 25 mg PO Q6H PRN #20 tab 06/25/16 predniSONE [Prednisone] 20 mg PO DAILY #3 tab 06/25/16 Famotidine 20 mg PO BID #60 tab 11/03/16 Ondansetron [Zofran Odt] 4 mg PO Q4H PRN #10 tab 11/03/16 Sucralfate Tab [Carafate Tab] 1 gm PO QID #120 tab 11/03/16 Spironolactone 25 mg PO DAILY #30 tab 11/07/16 Additional Instructions: clean area twice a day with warm soapy water and pat dry. Keep covered when outside. Return to ER for fever greater than a 5.5, redness, swelling, or purulent discharge. Follow-up with PCP in 10-14 days for suture removal. Tetanus is up-to-date
== END 2017-07-17 20:25 | disposition home or self-care (01) ==
LOC: ER 19:12
DX: S41.111A Laceration without foreign body of right upper arm, initial encounter (principal); I10 Essential (primary) hypertension; I49.9 Cardiac arrhythmia, unspecified; E07.9 Disorder of thyroid, unspecified; F17.220 Nicotine dependence, chewing tobacco, uncomplicated; Z88.0 Allergy status to penicillin; W45.8XXA Other foreign body or object entering through skin, initial encounter; Y92.9 Unspecified place or not applicable

== ENCOUNTER → 2017-09-15 | Outpatient (CLI) | payer SELFPAY ==
--- NOTE | 2017-09-15 17:03 | RAD ---
EXAM DESCRIPTION: Chest,2 Views CLINICAL HISTORY: SOB COMPARISON: None TECHNIQUE: PA/lateral FINDINGS: There is no acute appearing cardiac or pulmonary abnormality. Heart size is normal with normal pulmonary vascularity. No pleural effusion or pneumothorax. Lungs are clear with no consolidating infiltrate. Lateral view shows intact sternum and T-spine. IMPRESSION: No acute process is identified in the chest. Electronically signed by: Brady Matt MD 09/15/2017 5:02 PM CDT
--- NOTE | 2017-09-15 17:37 | US ---
EXAM DESCRIPTION: Abdomen,Complete CLINICAL HISTORY: ABDOMEN DISTENSION COMPARISON: Abdomen series dated 03 November 2016 TECHNIQUE: Complete abdominal ultrasound FINDINGS: Findings of hepatic steatosis are observed. There is no focal hepatic mass. The gallbladder is well seen and unremarkable. There are no gallstones. There is no gallbladder wall thickening. The common bile duct is normal in caliber measuring 4.9 mm. Portions of the pancreas seen appear normal. The spleen is normal in appearance. The kidneys are normal in size, shape, and echotexture. A calculus is identified in the left kidney measuring 5.8 mm in diameter The IVC and the proximal aorta are unremarkable. IMPRESSION: 1. Hepatic steatosis. 2. 5.8 mm diameter left renal calculus. Electronically signed by: Gabe Monaco MD 09/15/2017 5:36 PM CDT
== END ==
LOC: YCFC.O 15:58
PROVIDERS: ATTEND Nurse Practitioner Family
DX: R14.0 Abdominal distension (gaseous) (principal); R06.02 Shortness of breath; K76.0 Fatty (change of) liver, not elsewhere classified; N20.0 Calculus of kidney

== ENCOUNTER 2018-02-20 09:47 | Emergency (ER) | payer SELFPAY ==
[2018-02-20 10:13] VITALS: TEMP 99.5
--- NOTE | 2018-02-20 10:20 | ED.PDOC ---
History of Present Illness - General Chief Complaint: General Stated Complaint: lower ext swelling and redness Time Seen by Provider: 02/20/18 10:13 Source: patient Exam Limitations: no limitations - History of Present Illness Initial Comments: Kalia Garcia 53 y/o male came to ER with swelling both legs for the last 1 week and 2 days later got skin red and slightly painful;denies history of trauma ,no fever,chills.Has history of HTN ,no heart disease. Timing/Duration: 1 week Improving Factors: nothing Worsening Factors: movement Associated Symptoms: other - see hpi Allergies/Adverse Reactions: Allergies Penicillins Allergy (Severe, Verified 02/20/18 10:13) Home Medications: Ambulatory Orders Famotidine 20 mg PO BID #60 tab 11/03/16 Spironolactone 25 mg PO DAILY #30 tab 11/07/16 Aspirin [Enteric Coated Aspirin] 325 mg PO DAILY 02/20/18 Baclofen 20 mg PO BID #30 tab 02/20/18 Clindamycin HCl 300 mg PO TID 7 Days #42 cap 02/20/18 Clonidine HCl 0.1 mg PO DAILY 02/20/18 Folic Acid 1 mg PO DAILY 02/20/18 Furosemide 20 mg PO BID #30 tab 02/20/18 Lisinopril 40 mg PO DAILY 02/20/18 Metoprolol Tartrate [Lopressor] 50 mg PO BID 02/20/18 Review of Systems - Review of Systems Constitutional: States: no symptoms reported EENTM: States: no symptoms reported Respiratory: States: no symptoms reported Cardiology: States: no symptoms reported Gastrointestinal/Abdominal: States: no symptoms reported Genitourinary: States: no symptoms reported Musculoskeletal: States: see HPI Skin: States: no symptoms reported Neurological: States: no symptoms reported Past Medical History (General) - Patient Medical History Hx Seizures: No Hx Stroke: No Hx Dementia: No Hx Asthma: Yes - as child Hx of COPD: No Hx Cardiac Disorders: Yes - Irreg heart rate Hx Congestive Heart Failure: No Hx Pacemaker: No Hx Hypertension: Yes Hx Thyroid Disease: Yes Hx Diabetes: No Hx Gastroesophageal Reflux: No Hx Renal Disease: No Hx Cancer: No Hx of HIV: No Hx Hepatitis C: No Hx MRSA: No Surgical History: other - Vaccination History Hx Tetanus, Diphtheria Vaccination: No Hx Influenza Vaccination: No Hx Pneumococcal Vaccination: No - Social History Hx Tobacco Use: Yes - Dips snuff daily Hx Chewing Tobacco Use: Yes - Daily Hx Alcohol Use: Yes - 7-8 wiskey drinks daily;long standing history of alcoholism for 25 years Hx Substance Use: No Hx Substance Use Treatment: No Hx Depression: No Hx Physical Abuse: No Hx Emotional Abuse: No Hx Suspected Abuse: No - Activities of Daily Living Patient Lives Alone: No Grooming Ability: Standby Assistance Toileting Ability: Independent - Female History Patient : No Family Medical History - Family History Father Family History: Unknown Living Status: Still Living Hx Family Hypertension: No Hx Family Diabetes: Yes - dad Physical Exam - Physical Exam General Appearance: Alert, Comfortable, No apparent distress, Other - speaks in full sentences Eye Exam: bilateral normal Ears, Nose, Throat: hearing grossly normal, normal ENT inspection, normal pharynx Neck: non-tender, full range of motion, supple Respiratory: chest non-tender, lungs clear, normal breath sounds, no respiratory distress, no accessory muscle use Cardiovascular/Chest: normal peripheral pulses, regular rate, rhythm, no gallop , no murmur Peripheral Pulses: radial,right: 2+, radial,left: 2+ Gastrointestinal/Abdominal: normal bowel sounds, non tender, soft, distended Extremity: no calf tenderness, pedal edema - with skin erythema Neurologic: alert, oriented x 3 Skin Exam: normal color, warm/dry Progress - Progress Progress: 02/20/18 10:39 Vital Signs - 8 hr 02/20/18 02/20/18 10:07 10:18 Temperature 99.5 F Pulse Rate [ 88 pulse ox] Respiratory 28 H 28 H Rate Blood Pressure 166/103 [Left Arm] O2 Sat by Pulse 93 L Oximetry - Results/Orders Results/Orders: 02/20/18 10:30 EKG STAT 02/20/18 11:13 Hold Metformin x 48Hrs [id number] Abdomen/Pelvis w/Contrast [CT] Stat 02/20/18 12:26 Folic Acid 1 mg PO DAILY 02/20/18 12:30 Thiamine HCl [Vitamin B-1] 100 mg PO DAILY Laboratory Results - last 24 hr 02/20/18 02/20/18 02/20/18 10:23 10:23 10:37 WBC 6.7 RBC 3.94 L Hgb 11.8 L Hct 36.1 L MCV 91.4 MCH 29.9 MCHC 32.6 L RDW 17.9 H Plt Count 260 MPV 7.1 L Absolute Neuts (auto) 4.40 Absolute Lymphs (auto) 1.20 Absolute Monos (auto) 1.00 H Absolute Eos (auto) 0.10 Absolute Basos (auto) 0.10 Neutrophils % 65.1 Lymphocytes % 17.5 L Monocytes % 15.2 H Eosinophils % 1.0 Basophils % 1.2 PT 11.8 H INR 1.18 H PTT (SP) 26.1 Sodium 138 Potassium 4.1 Chloride 102 Carbon Dioxide 25 Anion Gap 15.1 BUN 13 Creatinine 1.11 BUN/Creatinine Ratio 11.7 Random Glucose 95 Serum Osmolality 275.6 Lactic Acid 2.0 Uric Acid 7.7 H Calcium 9.4 Magnesium 2.1 Total Bilirubin 1.8 H Direct Bilirubin 0.6 H Indirect Bilirubin 1.2 H GGT AST 249 H ALT 69 H Alkaline Phosphatase 158 H Creatine Kinase 396 H* CK-MB (CK-2) 5.3 H* CK-MB (CK-2) % 1.34 Troponin I 0.02 B-Natriuretic Peptide 433.0 H* Serum Total Protein 8.7 H Albumin 3.7 TSH 4.21 Urine Color Urine Appearance Urine pH Ur Specific [place] Urine Protein Urine Glucose (UA) Urine Ketones Urine Blood Urine Nitrite Urine Bilirubin Urine Urobilinogen Ur Leukocyte Esterase Urine RBC Urine WBC Ur Epithelial Cells Urine Bacteria Urine Opiates Screen Urine Barbiturates Ur Phencyclidine Scrn U Amphetamin/Meth Scrn U Benzodiazepines Scrn U Cocaine Metab Screen U Cannabinoids Screen 02/20/18 02/20/18 02/20/18 11:08 11:11 11:20 WBC RBC Hgb Hct MCV MCH MCHC RDW Plt Count MPV Absolute Neuts (auto) Absolute Lymphs (auto) Absolute Monos (auto) Absolute Eos (auto) Absolute Basos (auto) Neutrophils % Lymphocytes % Monocytes % Eosinophils % Basophils % PT INR PTT (SP) Sodium Potassium Chloride Carbon Dioxide Anion Gap BUN Creatinine BUN/Creatinine Ratio Random Glucose Serum Osmolality Lactic Acid Uric Acid Calcium Magnesium Total Bilirubin Direct Bilirubin Indirect Bilirubin GGT 661 H AST ALT Alkaline Phosphatase Creatine Kinase CK-MB (CK-2) CK-MB (CK-2) % Troponin I B-Natriuretic Peptide Serum Total Protein Albumin TSH Urine Color Yellow Urine Appearance Clear Urine pH 6.5 Ur Specific [place] 1.010 Urine Protein Negative Urine Glucose (UA) Negative Urine Ketones Negative Urine Blood Negative Urine Nitrite Negative Urine Bilirubin Negative Urine Urobilinogen 0.2 Ur Leukocyte Esterase Negative Urine RBC 0 Urine WBC 0 Ur Epithelial Cells 0 Urine Bacteria 0 Urine Opiates Screen Negative Urine Barbiturates Negative Ur Phencyclidine Scrn Negative U Amphetamin/Meth Scrn Negative U Benzodiazepines Scrn Negative U Cocaine Metab Screen Negative U Cannabinoids Screen Negative - EKG/XRAY/CT EKG: Sinus, no ST T wave changes Comments: HR-89 XRAY: chest - no acute process CT Ordered: Yes - abd /P-fatty liver Departure - Departure Clinical Impression: Edema of both legs, Alcoholic liver disease, Chronic alcoholism Time of Disposition: 12:57 Disposition: Discharge to Home or Self Care Condition: Fair Departure Forms: ED Discharge - Pt. Copy, Patient Portal Self Enrollment Instructions: Cirrhosis, Alcohol Use - When Is Drinking a Problem?, Alcohol Withdrawal (DC), Alcohol Abuse and Alcoholism (DC) Referrals: Chelle Quiñonez, APPEALS OFFICER [Primary Care Provider] - 1-2 Weeks Prescriptions: Baclofen 20 mg PO BID #30 tab Clindamycin HCl 300 mg PO TID 7 Days #42 cap Furosemide 20 mg PO BID #30 tab Home Medications: Ambulatory Orders Famotidine 20 mg PO BID #60 tab 11/03/16 Spironolactone 25 mg PO DAILY #30 tab 11/07/16 Aspirin [Enteric Coated Aspirin] 325 mg PO DAILY 02/20/18 Baclofen 20 mg PO BID #30 tab 02/20/18 Clindamycin HCl 300 mg PO TID 7 Days #42 cap 02/20/18 Clonidine HCl 0.1 mg PO DAILY 02/20/18 Folic Acid 1 mg PO DAILY 02/20/18 Furosemide 20 mg PO BID #30 tab 02/20/18 Lisinopril 40 mg PO DAILY 02/20/18 Metoprolol Tartrate [Lopressor] 50 mg PO BID 02/20/18 Additional Instructions: Continue with all home medications ;Need to take B-Complex vitamins am/pm; Librium capsule tapering dose see separate instructions;Follow up with Margie Britton -[facility] [address] [place] [address] phone-[phone] for further alcohol detox;Need also to follow up with primary Md 23 February 2018;return to ER as needed
[2018-02-20] MEDS ORDERED: BUMETANIDE 0.25 MG/ML VIAL IV ONE (10:21)
--- NOTE | 2018-02-20 10:47 | RAD ---
PROCEDURE: XR CHEST 1 VIEW HISTORY: leg swelling COMPARISON: 09/15/2017 TECHNIQUE: Single projection of the chest was done. FINDINGS: The lung delacruz are well inflated . There are no discrete airspace infiltrates, pneumothoraces or pleural effusions. The pulmonary vascularity is normal. The cardiomediastinal silhouette is stable. IMPRESSION: There is no acute pleural-parenchymal process seen in the imaged lung delacruz. Location of Interpretation: Teleradiology Electronically signed by: Bi Bennett MD 02/20/2018 10:45 AM [facility] Workstation: [id number]
[2018-02-20] MEDS ORDERED: CLINDAMYCIN IV 600MG 600 MG in PREMIX BAG 1 BAG IVPB ONE (11:36)
[2018-02-20] MEDS ORDERED: CLINDAMYCIN IV 600MG 50 ML IVPB ONE (12:10)
[2018-02-20] MEDS ORDERED: FOLIC ACID 1 MG TAB ONE (12:24)
[2018-02-20] MEDS ORDERED: THIAMINE HCL 100 MG TAB PO ONE (12:24)
[2018-02-20] MEDS ORDERED: FOLIC ACID 1 MG TAB PO SCH (12:26)
[2018-02-20] MEDS ORDERED: THIAMINE HCL 100 MG TAB PO SCH (12:30)
--- NOTE | 2018-02-20 12:50 | CT ---
EXAM DESCRIPTION: Abdomen/Pelvis w/Contrast CLINICAL HISTORY: 53 years Male distention /abnormal LFT COMPARISON: None TECHNIQUE: Intravenous contrast enhanced axial scans of the abdomen and pelvis were obtained. Sagittal and coronal reformatted images were performed. This exam was performed according to our departmental dose-optimization program, which includes automated exposure control, adjustment of the mA and/or kV according to patient size and/or use of iterative reconstruction technique. FINDINGS: The lung bases are unremarkable. The gallbladder is present. There is fatty infiltration of the liver. A couple of tiny low-density lesions consistent with cysts are seen in the left lobe of the liver. There is relative elongation of the right lobe of the liver and slight elevation or eventration of the right hemidiaphragm. The spleen, pancreas, kidneys, and adrenal glands are unremarkable. There is no evidence of biliary dilatation, obstructive uropathy, or ascites. Mildly prominent nonspecific left para-aortic and portacaval lymph nodes are visualized. There is slight aorto iliac calcification and tortuosity, with no evidence of abdominal aortic aneurysm. Negligible fat-containing umbilical hernia. No abnormal masses or fluid collections are seen in the pelvis. The prostate is not enlarged. There is no evidence of appendicitis, significant diverticular disease in the colon, bowel obstruction, or pneumoperitoneum. The bladder appears somewhat thick-walled, which may be due to cystitis. Small nonspecific inguinal lymph nodes are visualized bilaterally. Regional bony structures appear intact. IMPRESSION: Fatty liver, containing a couple of tiny cysts. Borderline prominent nonspecific left para-aortic and portacaval lymph nodes, of questionable significance. Bladder wall thickening, consistent with cystitis. Other minor findings and chronic changes as described above. Electronically signed by: Robson Conklin MD 02/20/2018 12:48 PM [facility]
[2018-02-20 13:29] VITALS: BP 161/107; O2SAT 96
== END 2018-02-20 13:25 | disposition home or self-care (01) ==
LOC: ER 09:47
DX: R60.0 Localized edema (principal); K70.9 Alcoholic liver disease, unspecified; I10 Essential (primary) hypertension; F17.220 Nicotine dependence, chewing tobacco, uncomplicated; E07.9 Disorder of thyroid, unspecified; Z88.0 Allergy status to penicillin; Z79.82 Long term (current) use of aspirin; Z79.899 Other long term (current) drug therapy
CPT/HCPCS: 36415; 71045; 74177; 80048; 80076; 80307; 81001; 82550; 82553; 82977; 83605; 83880; 84443; 84484; 84550; 85025; 85610; 85730; 93005; J3490

== ENCOUNTER 2018-04-24 09:05 | Emergency (ER) | payer SELFPAY ==
[2018-04-24] MEDS ORDERED: NITROGLYCERIN 0.4 MG 25 EA TAB SL ONE ×3 (09:18→09:32)
[2018-04-24] MEDS ORDERED: ATENOLOL 25 MG TAB PO ONE (09:19)
[2018-04-24] MEDS ORDERED: ATORVASTATIN 20 MG TAB PO ONE (09:19)
[2018-04-24] MEDS ORDERED: MORPHINE SULFATE INJ 10 MG/ML VIAL IV ONE ×2 (09:33→10:06)
[2018-04-24] MEDS ORDERED: MORPHINE SULFATE INJ 10 MG/ML VIAL ONE (09:35)
--- NOTE | 2018-04-24 09:35 | ED.PDOC ---
History of Present Illness - General Chief Complaint: Chest Pain/ME Time Seen by Provider: 04/24/18 09:18 Source: patient, family Exam Limitations: no limitations - History of Present Illness Initial Comments: patient comes in today for chest pain. Patient states the pain is pressure- like on the left side sharp on the right. It radiates to his back and between his shoulder blades. It was associated with some nausea, shortness of breath, and diaphoresis this morning. Patient states at approximately midnight he had severe chest pain that awoke him from sleep. He took his 's nitroglycerin and it did greatly improve the pain. He went back to sleep was awakened at 6:30 with similar pain. This time the pain was more severe on although nitroglycerin has brought the pain down to a 5 out of 10 and is still present. Patient states it's been consistent since that time. Patient was feeling in usual health prior to this episodes and denies cough or congestion. He did do some heavy lifting but states the pain does not get worse with palpation nor movement. He has had some chest pain in the past but was told it was esophagitis. He had a murmur when he was a child but believes that resolved whenever he was young and does not have any known coronary artery disease. Patient has a history of hypertension and is on clonidine, lisinopril, spironolactone. He has a history of fatty liver disease and cirrhosis of the liver from alcohol abuse. Patient states he quit drinking for some time but started again a couple of weeks ago and has been drinking about a fifth a day of hard liquor. Patient does not smoke now nor has he in the past but he does dip. He has smoked marijuana and last time was about 3 weeks ago and he does not smoke regularly. He denies any other drug use including specifically cocaine and methamphetamines. Patient has a family history of heart disease in an uncle in his 50s and a first cousing who had cardiomyopathy and subsequent heart failure with heart transplant in his 30s. Timing/Duration: 1-3 hours Severity/Quality: severe, pressure, sharp Chest Pain Radiation: shoulders Activities at Onset: rest Prior Chest Pain/Cardiac Workup: no prior cardiac workup Improving Factors: medication - nitro x 2 that is his 's Worsening Factors: nothing Nitro Today/Relief: 0.4 mg x 4, provided by EMS, provided at home Aspirin Treatment Today: 325 mg x 1, provided at home Associated Symptoms: denies symptoms Allergies/Adverse Reactions: Allergies Penicillins Allergy (Severe, Verified 02/20/18 10:13) Home Medications: Ambulatory Orders Spironolactone 25 mg PO DAILY #30 tab 11/07/16 Aspirin [Enteric Coated Aspirin] 325 mg PO DAILY 02/20/18 Clonidine HCl 0.1 mg PO DAILY 02/20/18 Folic Acid 1 mg PO DAILY 02/20/18 Lisinopril 40 mg PO DAILY 02/20/18 Review of Systems - Review of Systems Constitutional: States: no symptoms reported. Denies: chills, fever EENTM: States: no symptoms reported. Denies: eye pain, nose congestion Respiratory: States: short of breath. Denies: cough, wheezing Cardiology: States: chest pain. Denies: edema, palpitations, syncope Gastrointestinal/Abdominal: States: no symptoms reported, nausea. Denies: abdominal pain, constipation, diarrhea, vomiting Genitourinary: States: no symptoms reported Musculoskeletal: States: no symptoms reported Skin: States: no symptoms reported Neurological: States: no symptoms reported Past Medical History (General) - Patient Medical History Hx Seizures: No Hx Stroke: No Hx Dementia: No Hx Asthma: Yes - as child Hx of COPD: No Hx Cardiac Disorders: Yes - Irreg heart rate Hx Congestive Heart Failure: No Hx Pacemaker: No Hx Hypertension: Yes Hx Thyroid Disease: Yes Hx Diabetes: No Hx Gastroesophageal Reflux: No Hx Renal Disease: No Hx Cancer: No Hx of HIV: No Hx Hepatitis C: No Hx MRSA: No - Vaccination History Hx Tetanus, Diphtheria Vaccination: No Hx Influenza Vaccination: No Hx Pneumococcal Vaccination: No - Social History Hx Tobacco Use: Yes - Dips snuff daily Hx Chewing Tobacco Use: Yes - Daily Hx Alcohol Use: Yes - 7-8 wiskey drinks daily;long standing history of alcoholism for 25 years Hx Substance Use: No Hx Substance Use Treatment: No Hx Depression: No Hx Physical Abuse: No Hx Emotional Abuse: No Hx Suspected Abuse: No - Female History Patient : No Family Medical History - Family History Father Family History: Unknown Living Status: Still Living Hx Family Hypertension: No Hx Family Diabetes: Yes - dad Physical Exam - Physical Exam General Appearance: Alert, Anxious, No apparent distress, Obese Eyes, Ears, Nose, Throat Exam: PERRL/EOMI, TMs normal, pharynx normal Neck: non-tender, full range of motion, supple, normal inspection Respiratory: chest non-tender, lungs clear, normal breath sounds, no respiratory distress Cardiovascular/Chest: normal peripheral pulses, regular rate, rhythm, no edema, no gallop, no JVD, no murmur Peripheral Pulses: radial,right: 2+, radial,left: 2+ Gastrointestinal/Abdominal: normal bowel sounds, non tender, soft, distended Extremity: non-tender Neurologic: alert, oriented x 3 Skin Exam: normal color Progress - Progress Progress: patient had pain improve but not relieved after 2 nitro given here and 2 taken at home. Morphine was ordered and it did help but pain quickly returned and nitro drip was ordered. With nitro drip pain has resolved. Patient was given Lipitor, Atenolol, and IV heparin as well as the nitro drip that is still going. He took 650 mg of ASA this morning at home prior to arriving. Patient is currently asymptomatic but with pain only controlled thus far with nitro will transfer him for evaluation for possible unstable angina. 04/24/18 11:30 - Results/Orders Results/Orders: 04/24/18 09:30 EKG STAT 04/24/18 10:30 Nitroglycerin/D5w IV 50,000 mcg Premix Bottle 1 bottle IVS PRN Laboratory Results WBC 5.8 K/mm3 (4.8-10.8) 04/24/18 09:24 RBC 4.43 M/mm3 (4.70-6.10) L 04/24/18 09:24 Hgb 12.6 gm/dL (14.0-18.0) L 04/24/18 09:24 Hct 39.0 % (42.0-52.0) L 04/24/18 09:24 MCV 88.1 fl (80.0-94.0) 04/24/18 09:24 MCH 28.4 pg (27.0-31.0) 04/24/18 09:24 MCHC 32.4 g/dL (33.0-37.0) L 04/24/18 09:24 RDW 17.0 % (11.5-14.5) H 04/24/18 09:24 Plt Count 167 K/mm3 (130-400) 04/24/18 09:24 MPV 7.2 fl (7.40-10.4) L 04/24/18 09:24 Absolute Neuts (auto) 4.00 K/uL (1.8-6.8) 04/24/18 09:24 Absolute Lymphs (auto) 1.00 K/uL (1.0-3.4) 04/24/18 09:24 Absolute Monos (auto) 0.70 K/uL (0.2-0.8) 04/24/18 09:24 Absolute Eos (auto) 0.00 K/uL (0.0-0.4) 04/24/18 09:24 Absolute Basos (auto) 0.10 K/uL (0.0-0.1) 04/24/18 09:24 Neutrophils % 69.4 % (42.0-78.0) 04/24/18 09:24 Lymphocytes % 16.7 % (20.0-50.0) L 04/24/18 09:24 Monocytes % 12.3 % (2.0-9.0) H 04/24/18 09:24 Eosinophils % 0.7 % (1.0-5.0) L 04/24/18 09:24 Basophils % 0.9 % (0.0-2.0) 04/24/18 09:24 PT 11.6 SECONDS (9.0-10.9) H 04/24/18 09:24 INR 1.16 (0.9-1.15) H 04/24/18 09:24 PTT (SP) 24.6 SECONDS (21.8-31.6) 04/24/18 09:24 D-Dimer, Quantitative 0.86 mg/L FEU (0-0.49) H* 04/24/18 09:24 Sodium 138 mmol/L (135-145) 04/24/18 09:24 Potassium 3.9 mmol/L (3.6-5.0) 04/24/18 09:24 Chloride 104 mmol/L (101-111) 04/24/18 09:24 Carbon Dioxide 23 mmol/L (21-31) 04/24/18 09:24 Anion Gap 14.9 (12-18) 04/24/18 09:24 BUN 14 mg/dL (7-18) 04/24/18 09:24 Creatinine 1.12 mg/dL (0.6-1.3) 04/24/18 09:24 BUN/Creatinine Ratio 12.5 (10-20) 04/24/18 09:24 Random Glucose 137 mg/dL (70-105) H 04/24/18 09:24 Serum Osmolality 278.3 mOsm/L (275-295) 04/24/18 09:24 Calcium 9.0 mg/dL (8.4-10.2) 04/24/18 09:24 Magnesium 1.7 mg/dL (1.8-2.5) L 04/24/18 09:24 Total Bilirubin 1.5 mg/dL (0.2-1.0) H 04/24/18 09:24 AST 94 IU/L (10-42) H 04/24/18 09:24 ALT 52 IU/L (10-60) 04/24/18 09:24 Alkaline Phosphatase 102 IU/L (42-121) 04/24/18 09:24 Creatine Kinase 305 IU/L (38-174) H* 04/24/18 09:24 CK-MB (CK-2) 8.0 ng/mL (0.0-4.4) H* 04/24/18 09:24 CK-MB (CK-2) % 2.62 % (0.0-3.5) 04/24/18 09:24 Troponin I < 0.02 ng/mL (0.01-0.05) 04/24/18 09:24 Serum Total Protein 8.1 gm/dL (6.4-8.2) 04/24/18 09:24 Albumin 3.8 g/dl (3.2-5.5) 04/24/18 09:24 Globulin 4.3 gm/dL (2.3-3.5) H 04/24/18 09:24 Albumin/Globulin Ratio 0.9 (1.1-1.9) L 04/24/18 09:24 Patient Name: AZUL COLEMAN Gender: Male Date of : 1965 Referring Physician: VANNESA DOUGLAS Organization: [facility] Accession Number: [id number] Requested Date: April 24, 2018 10:03 Report Status: Final Requested Procedure: 1 Procedure Description: CTA Chest Modality: CT Findings Reporting MD: Quentin Marques Fellow MD: Not available Dictation Time: Layer Off: Not available Roof Designer Date: EXAM DESCRIPTION: CTA Chest: Computed Tomography. CLINICAL HISTORY: chest pain elevated D-dimer COMPARISON: Chest radiograph on this visit. TECHNIQUE: Spiral-axial scans at 2.5 x 2.5 mm intervals through the pulmonary arteries and chest after bolus infusion of IV contrast. Lung algorithm 1.25 x 2.5-mm axial reconstructions. Coronal and sagittal 2.0 Mm reconstructions. 10.0 mm PE oblique, coronal, and sagittal 3-D reformatted images. No adverse reactions. Total Exam DLP: 903.7 mGy-cm. This exam was performed according to our departmental CT dose-optimization program which includes automated exposure control, adjustment of the mA and/or kV according to patient size and/or use of iterative reconstruction technique; to reduce radiation dose to as low as reasonably achievable (ALARA). FINDINGS: Heart and great vessels: Moderate amount of contrast seen in the pulmonary artery system from the main pulmonary artery to the distal bilateral segmental pulmonary arteries. No filling defects. Caliber of the bilateral peripheral pulmonary artery branches is symmetric bilaterally. No aortic aneurysm or dissection. Minimal atherosclerotic calcification. Minimal coronary artery calcification. Question of left ventricular wall myocardial thickening. Lungs and airways: Mosaic parenchymal density in the lungs bilaterally. No abnormal nodules, focal masses, or focal infiltrates. Bilateral posterior minimal dependent atelectasis. Pleura and spaces: Minimal right pleural thickening versus chronic effusion. No pneumothorax. Mediastinum and brendon: Limited centimeters short axis azygous node. 9 mm short axis subcarinal node. 9 mm short axis node in the inferior right hilum. Smaller nodes in the anterior mediastinum, AP window, and brendon. No large soft tissue masses. Radiology [employer] [address] [facility] [place], [place] T [phone] F [phone] [email or web address] - Report exported on Apr 24, 2018 11:19:22 -0600 - Page 2 of 2 Chest wall, inferior neck soft tissues and axilla: Bilateral small axillary lymph nodes. Bilateral gynecomastia. Upper abdomen: No free air or fluid in the included peritoneal space. Atherosclerotic calcifications splenic artery. Included pancreas gallbladder, adrenal glands, and spleen negative. 2 cysts in the included liver. Diffuse low-density in the liver. Osseous structures: Early anterior disc space hypertrophy at some levels. No lytic or blastic lesions. IMPRESSION: 1. Only moderate enhancement of the pulmonary artery system, but no acute pulmonary embolus. Right pleural thickening or chronic effusion. 2. Minimal calcification in the coronary arteries with questionable left ventricular wall thickening. 3. Borderline enlarged lymph nodes in the mediastinum, more likely old inflammatory or infectious process. Patient Name: AZUL COLEMAN Gender: Male Date of : 1965 Referring Physician: VANNESA DOUGLAS Organization: [facility] Accession Number: [id number] Requested Date: April 24, 2018 09:19 Report Status: Final Requested Procedure: 1 Procedure Description: Chest,1 View Modality: CR Findings Reporting MD: Brady Matt Fellow MD: Not available Dictation Time: Layer Off: Not available Roof Designer Date: EXAM DESCRIPTION: Chest,1 View CLINICAL HISTORY: 53 years Male, chest pain COMPARISON: Previous study February 20, 2018 TECHNIQUE: AP portable chest. FINDINGS: Heart size is large with prominent central pulmonary vascularity. Right hemidiaphragm is elevated. No change compared to the previous study. No consolidating infiltrate. No pulmonary mass or worrisome nodule. No pneumothorax or pleural effusion. Bones are unremarkable. IMPRESSION: Prominent heart without congestive failur - EKG/XRAY/CT EKG: Sinus, no ST T wave changes, Changed from - notched QRS in inferior leads Comments: septal infart noted on 02/20 as well, normal axis HR of 88 Departure - Departure Clinical Impression: Acute coronary syndrome Disposition: Transfer to Hospital Condition: Fair Departure Forms: ED Discharge - Pt. Copy, Patient Portal Self Enrollment Instructions: DI for Chest Pain Referrals: Chelle Quiñonez MACHINE OPERATOR CANE CUTTER [Primary Care Provider] - 1-2 Weeks Home Medications: Ambulatory Orders Spironolactone 25 mg PO DAILY #30 tab 11/07/16 Aspirin [Enteric Coated Aspirin] 325 mg PO DAILY 02/20/18 Clonidine HCl 0.1 mg PO DAILY 02/20/18 Folic Acid 1 mg PO DAILY 02/20/18 Lisinopril 40 mg PO DAILY 02/20/18 Transfer to Outside Facility - Transfer Information Accepting Provider:: Flaco Accepting Facility: [facility] Reason for Transfer: specialized care not available
--- NOTE | 2018-04-24 09:55 | RAD ---
EXAM DESCRIPTION: Chest,1 View CLINICAL HISTORY: 53 years Male, chest pain COMPARISON: Previous study February 20, 2018 TECHNIQUE: AP portable chest. FINDINGS: Heart size is large with prominent central pulmonary vascularity. Right hemidiaphragm is elevated. No change compared to the previous study. No consolidating infiltrate. No pulmonary mass or worrisome nodule. No pneumothorax or pleural effusion. Bones are unremarkable. IMPRESSION: Prominent heart without congestive failure. Electronically signed by: Brady Matt MD 04/24/2018 9:54 AM [facility]
[2018-04-24] MEDS ORDERED: HEPARIN SODIUM (PORCINE) 5,000 U/ML VIAL IV ONE (10:16)
[2018-04-24] MEDS ORDERED: NITROGLYCERIN/D5W IV 50,000 MCG in PREMIX BOTTLE 1 BOTTLE IVS SCH (10:30)
[2018-04-24] MEDS ORDERED: NITROGLYCERIN/D5W IV 250 ML IVS ONE (10:45)
--- NOTE | 2018-04-24 11:17 | CT ---
EXAM DESCRIPTION: CTA Chest: Computed Tomography. CLINICAL HISTORY: chest pain elevated D-dimer COMPARISON: Chest radiograph on this visit. TECHNIQUE: Spiral-axial scans at 2.5 x 2.5 mm intervals through the pulmonary arteries and chest after bolus infusion of IV contrast. Lung algorithm 1.25 x 2.5-mm axial reconstructions. Coronal and sagittal 2.0 Mm reconstructions. 10.0 mm PE oblique, coronal, and sagittal 3-D reformatted images. No adverse reactions. Total Exam DLP: 903.7 mGy-cm. This exam was performed according to our departmental CT dose-optimization program which includes automated exposure control, adjustment of the mA and/or kV according to patient size and/or use of iterative reconstruction technique; to reduce radiation dose to as low as reasonably achievable (ALARA). FINDINGS: Heart and great vessels: Moderate amount of contrast seen in the pulmonary artery system from the main pulmonary artery to the distal bilateral segmental pulmonary arteries. No filling defects. Caliber of the bilateral peripheral pulmonary artery branches is symmetric bilaterally. No aortic aneurysm or dissection. Minimal atherosclerotic calcification. Minimal coronary artery calcification. Question of left ventricular wall myocardial thickening. Lungs and airways: Mosaic parenchymal density in the lungs bilaterally. No abnormal nodules, focal masses, or focal infiltrates. Bilateral posterior minimal dependent atelectasis. Pleura and spaces: Minimal right pleural thickening versus chronic effusion. No pneumothorax. Mediastinum and brendon: Limited centimeters short axis azygous node. 9 mm short axis subcarinal node. 9 mm short axis node in the inferior right hilum. Smaller nodes in the anterior mediastinum, AP window, and brendon. No large soft tissue masses. Chest wall, inferior neck soft tissues and axilla: Bilateral small axillary lymph nodes. Bilateral gynecomastia. Upper abdomen: No free air or fluid in the included peritoneal space. Atherosclerotic calcifications splenic artery. Included pancreas gallbladder, adrenal glands, and spleen negative. 2 cysts in the included liver. Diffuse low-density in the liver. Osseous structures: Early anterior disc space hypertrophy at some levels. No lytic or blastic lesions. IMPRESSION: 1. Only moderate enhancement of the pulmonary artery system, but no acute pulmonary embolus. Right pleural thickening or chronic effusion. 2. Minimal calcification in the coronary arteries with questionable left ventricular wall thickening. 3. Borderline enlarged lymph nodes in the mediastinum, more likely old inflammatory or infectious process. Electronically signed by: Quentin Marques MD 04/24/2018 11:17 AM SPECIAL INVESTIGATION UNIT INVESTIGATOR
[2018-04-24 12:11] VITALS: BP 178/114
[2018-04-24 12:29] VITALS: TEMP 99; O2SAT 97
== END 2018-04-24 12:29 | disposition short-term general hospital (02) ==
LOC: ER 09:05
DX: I24.9 Acute ischemic heart disease, unspecified (principal); I10 Essential (primary) hypertension; E07.9 Disorder of thyroid, unspecified; Z87.891 Personal history of nicotine dependence; F10.20 Alcohol dependence, uncomplicated; Z79.82 Long term (current) use of aspirin; Z79.899 Other long term (current) drug therapy; Z88.0 Allergy status to penicillin
CPT/HCPCS: 71045; 71275; 80053; 82550; 82553; 83735; 84484; 85025; 85379; 85610; 85730; 93005; J1644; J2270

== ENCOUNTER 2018-11-14 11:14 | Emergency (ER) | payer SELFPAY ==
[2018-11-14 11:27] VITALS: TEMP 96.4
[2018-11-14] MEDS ORDERED: SOD POLYSTYRENE SULFONATE 15 GM/60 ML BTTL PO ONE ×2 (12:00→14:22)
[2018-11-14] MEDS ORDERED: THIAMINE HCL 100 MG TAB PO ONE (12:03)
[2018-11-14] MEDS ORDERED: FOLIC ACID 1 MG TAB PO ONE (12:03)
[2018-11-14] MEDS ORDERED: SODIUM CHLORIDE 0.9% 1000ML 1,000 ML IVS ONE ×2 (12:06→14:20)
[2018-11-14] MEDS ORDERED: FOLIC ACID INJ 5 MG/ML VIAL ONE (12:06)
[2018-11-14] MEDS ORDERED: THIAMINE HCL INJ 100 MG/ML VIAL ONE (12:06)
[2018-11-14] MEDS ORDERED: SODIUM BICARBONATE VIAL 50 MEQ/50 ML VIAL IV ONE (12:08)
[2018-11-14] MEDS ORDERED: SODIUM BICARBONATE SYRINGE 50 MEQ/50 ML SYG IV ONE ×2 (12:08→14:10)
[2018-11-14] MEDS ORDERED: CALCIUM GLUCONATE INJ 1 GM/10 ML VIAL IV ONE ×2 (12:09→14:50)
[2018-11-14] MEDS ORDERED: DEXTROSE 50% 25 GM/50 ML SYG IV ONE ×2 (12:18→14:52)
[2018-11-14] MEDS ORDERED: SODIUM CHLORIDE 0.9% 50ML 50 ML ONE ×2 (12:38→15:27)
--- NOTE | 2018-11-14 13:19 | CT ---
EXAM: CT Abdomen and Pelvis Without Intravenous Contrast CLINICAL HISTORY: arf, hepatitis, leukocytosis TECHNIQUE: Axial computed tomography images of the abdomen and pelvis without intravenous contrast. Sagittal and coronal reformatted images were created and reviewed. This CT exam was performed using one or more of the following dose reduction techniques: automated exposure control, adjustment of the mA and/or kV according to patient size, and/or use of iterative reconstruction technique. COMPARISON: No relevant prior studies available. FINDINGS: Limitations: None. Lung bases: Unremarkable. No mass. No consolidation. ABDOMEN: Liver: Cirrhotic liver. Heterogeneous density of the liver with nodular cortex. Multiple tiny hypodensities likely cysts present throughout the parenchyma. Gallbladder and bile ducts: Unremarkable. No calcified stones. No ductal dilation. Pancreas: Unremarkable. No ductal dilation. Spleen: Unremarkable. No splenomegaly. Adrenals: Unremarkable. No mass. Kidneys and ureters: Unremarkable. No obstructing stones. No hydronephrosis. Stomach and bowel: Unremarkable. No obstruction. No mucosal thickening. PELVIS: Appendix: No findings to suggest acute appendicitis. Bladder: The urinary bladder is well distended but appears mildly thickened and inflamed. No stones. Reproductive: Unremarkable as visualized. ABDOMEN and PELVIS: Intraperitoneal space: Unremarkable. No free air. No significant fluid collection. Bones/joints: No acute fracture. No dislocation. Soft tissues: Inguinal hernias noted containing fat. Vasculature: Unremarkable. No abdominal aortic aneurysm. Lymph nodes: Unremarkable. No enlarged lymph nodes. Other findings: There is mild nonspecific mesenteric stranding likely chronic. IMPRESSION: 1. Suspect cystitis. Correlate with urinalysis. 2. Cirrhotic appearance of the liver. Electronically signed by: Krista Dupont MD 11/14/2018 1:18 PM CDT
--- NOTE | 2018-11-14 13:19 | RAD ---
Procedure: XR CHEST 2 VIEWS Exam Date: 11/14/2018 11:29 AM CDT Ordering Provider: Maykel Schmidt Clinical Indication: sob Comparison: None Findings: The lungs are clear and well-aerated. No pleural effusion or pneumothorax. Cardiac silhouette is normal in size. Impression: No acute pulmonary process. Electronically signed by: Tika Serrano MD 11/14/2018 1:18 PM CDT
[2018-11-14] MEDS ORDERED: INSULIN, REG.(HUMAN) 100 U/ML VIAL IV ONE (13:28)
[2018-11-14] MEDS ORDERED: IPRATROPIUM/ALBUTEROL 3 ML VIAL NEB ONE (13:30)
[2018-11-14] MEDS ORDERED: FUROSEMIDE INJ 40 MG/4 ML VIAL IV ONE (14:20)
[2018-11-14] MEDS ORDERED: SODIUM BICARBONATE 10MEQ/10ML 10 MEQ/10 ML SYG IV ONE (14:51)
--- NOTE | 2018-11-14 15:42 | ED.PDOC ---
History of Present Illness - General Chief Complaint: Cardiovascular Problem Stated Complaint: low BP, dizziness SOB Time Seen by Provider: 11/14/18 11:19 Source: patient Exam Limitations: no limitations - History of Present Illness Initial Comments: the patient is a 53-year-old male presenting to emergency room secondary to feeling poorly in general this morning. He is having some tingling in his hands. He had about 30 seconds of some chest pain. No nausea or vomiting. The patient has some perioral tingling. He feels a little bit short of breath. He does have a history of heavy drinking and some mild cirrhosis. He just finished a 4 day period of binge drinking. Again no abdominal symptoms. No fever. No nausea or vomiting. He does not take lactulose and has not had to have paracentesis before. The patient does have a history of hypertension and is on metoprolol and lisinopril for this on a regular basis. He reports that over the last several weeks his blood pressures have actually been running low but he has continued to take medications. He apparently did take doses of them this morning as well. No difficulties with urination. No difficulties with bowel movement. No cough. No fever. No runny nose or sore throat. He does report a mild headache. The patient is pleasant and cooperative. Timing/Duration: unsure Severity: moderate Improving Factors: nothing Worsening Factors: nothing Associated Symptoms: chest pain, headaches, malaise, shortness of breath, weakness Allergies/Adverse Reactions: Allergies Penicillins Allergy (Severe, Verified 02/20/18 10:13) Home Medications: Ambulatory Orders Clonidine HCl 0.1 mg PO DAILY 02/20/18 Lisinopril 40 mg PO DAILY 02/20/18 Metoprolol Tartrate 50 mg PO DAILY 11/14/18 Review of Systems - Review of Systems Constitutional: States: malaise, weakness - generalized EENTM: States: no symptoms reported Respiratory: States: short of breath - mild Cardiology: States: chest pain - very brief Gastrointestinal/Abdominal: States: no symptoms reported Genitourinary: States: no symptoms reported Musculoskeletal: States: no symptoms reported Skin: States: no symptoms reported Neurological: States: see HPI Endocrine: States: no symptoms reported All other Systems: No Change from Baseline Past Medical History (General) - Patient Medical History Hx Seizures: No Hx Stroke: No Hx Dementia: No Hx Asthma: Yes - as child Hx of COPD: No Hx Cardiac Disorders: Yes - Irreg heart rate Hx Congestive Heart Failure: No Hx Pacemaker: No Hx Hypertension: Yes Hx Thyroid Disease: Yes Hx Diabetes: No Hx Gastroesophageal Reflux: No Hx Renal Disease: No Hx Cancer: No Hx of HIV: No Hx Hepatitis C: No Hx MRSA: No Surgical History: no surgical history - Vaccination History Hx Tetanus, Diphtheria Vaccination: No Hx Influenza Vaccination: No Hx Pneumococcal Vaccination: No - Social History Hx Tobacco Use: No Hx Chewing Tobacco Use: Yes - Daily Hx Alcohol Use: Yes - 1/5 of whiskey a day Hx Substance Use: No Hx Substance Use Treatment: No Hx Depression: No Hx Physical Abuse: No Hx Emotional Abuse: No Hx Suspected Abuse: No - Female History Patient : No Family Medical History - Family History Father Family History: Unknown Living Status: Still Living Hx Family Hypertension: No Hx Family Diabetes: Yes - dad Physical Exam - Physical Exam General Appearance: Alert, Comfortable, No apparent distress - allergies Eye Exam: bilateral normal - : She is Ears, Nose, Throat: hearing grossly normal, normal ENT inspection Neck: full range of motion, supple Respiratory: no respiratory distress, no accessory muscle use - occasional scattered wheezes, other - occasional scattered wheezes Cardiovascular/Chest: normal peripheral pulses, regular rate, rhythm, no edema, other - occasional PVCs on telemetry Peripheral Pulses: radial,right: 2+, radial,left: 2+, dorsalis pedis,right: 2+, dorsalis pedis,left: 2+ Gastrointestinal/Abdominal: non tender, soft, other - obese Rectal Exam: deferred Back Exam: no CVA tenderness, no vertebral tenderness Extremity: non-tender, normal inspection, no pedal edema, normal capillary refill Neurologic: manager steel II-XII nml as tested, alert, normal mood/affect, oriented x 3 Skin Exam: other - grayish discoloration of skin Comments: Vital Signs - 24 hr 11/14/18 11/14/18 11/14/18 11:15 12:08 12:13 Temperature 96.4 F L Pulse Rate Pulse Rate [ 75 75 Left Radial] Respiratory 32 H 32 H Rate Blood Pressure 86/54 98/62 87/54 [Left Arm] O2 Sat by Pulse 96 Oximetry 11/14/18 11/14/18 12:14 14:26 Temperature Pulse Rate 82 Pulse Rate [ 93 H Left Radial] Respiratory 40 H 22 Rate Blood Pressure 96/62 [Left Arm] O2 Sat by Pulse 88 L 97 Oximetry Progress - Progress Progress: 11/14/18 15:46 the patient is a 53-year-old male presenting to the emergency room secondary to relatively nonspecific symptoms, found to be in a rather severe state. The patient has acute hepatitis most likely due to alcohol intake. He also has acute renal failure with resultant severe hyperkalemia that is likely giving him the bulk of his symptoms. There are also EKG changes due to the elevated potassium. He was also hypoglycemic upon arrival which has been corrected. He also has a significant lactic acidosis. Blood pressures have been in the low normal range here in the 90s over 60s for the most part. This a ppears to be a longer standing issue with the patient and may at least partially be due to his blood pressure medications. For the problems listed above the patient has received a couple of liters of IV fluids. He has also received 1 dose of Lasix IV to help remove potassium. He has received insulin and D50. He has received an albuterol treatment. He has received 2 doses of sodium bicarbonate as well as 2 doses of calcium gluconate as well as 2 doses of Kayexalate. He has also received thiamine and folic acid. I did perform 2 attempts at a paracentesis primarily for diagnostic purpose of ruling out the underlying asymptomatic bacterial peritonitis that could be bringing him down. Ultrasound was used but no decent fluid pockets were obtained. both attempts failed. Again the patient is not having any abdominal symptoms at this point. He has not had any fevers. We did do a blood culture. He did receive a dose of Levaquin primarily prophylactically given his liver history. Blood pressures are low normal, I have deferred pressors at this time for fear of aggravating an arrhythmia. The patient is being transferred for higher level of care. Critical care time spent on this patient is 55 minutes excluding otherwise billable procedures. Acceptance at receiving facility is appreciated. - Results/Orders Results/Orders: 11/14/18 11:28 Telemetry .CONTINUOUS Vital Signs-Tilt PRN 11/14/18 11:30 EKG STAT 11/14/18 13:28 BLOOD CULTURE Stat 11/14/18 13:45 UA [URINALYSIS] Stat 11/14/18 15:30 EKG STAT 11/15/18 12:39 Thiamine HCl Inj 100 mg IV ONCE ONE Laboratory Results - last 24 hr 11/14/18 11/14/18 11/14/18 11:28 11:28 11:28 WBC 12.2 H RBC 3.54 L Hgb 11.2 L Hct 35.7 L MCV 101.0 H MCH 31.7 H MCHC 31.4 L RDW 18.7 H Plt Count 245 MPV 8.3 Absolute Neuts (auto) 10.20 H Absolute Lymphs (auto) 1.10 Absolute Monos (auto) 0.90 H Absolute Eos (auto) 0.00 Absolute Basos (auto) 0.10 Neutrophils % 83.1 H Lymphocytes % 9.0 L Monocytes % 7.2 Eosinophils % 0.1 L Basophils % 0.6 PT 15.4 H INR 1.55 H PTT (SP) 28.6 D-Dimer, Quantitative 8.77 H* Sodium 136 Potassium 8.2 H* Chloride 101 Carbon Dioxide 12 L* Anion Gap 31.2 H BUN 39 H Creatinine 4.27 H BUN/Creatinine Ratio 9.1 L Random Glucose 37 L* Serum Osmolality 277.9 Lactic Acid Calcium 8.0 L Magnesium 2.5 Total Bilirubin 3.9 H* AST 9261 H ALT 1353 H Alkaline Phosphatase 210 H Ammonia Creatine Kinase 566 H* CK-MB (CK-2) 19.3 H* CK-MB (CK-2) % 3.41 Troponin I 0.10 H* B-Natriuretic Peptide 531.0 H* Serum Total Protein 7.4 Albumin 3.2 Globulin 4.2 H Albumin/Globulin Ratio 0.8 L Amylase 76 Lipase 95 H TSH 2.05 11/14/18 11/14/18 11/14/18 11:28 13:28 13:28 WBC RBC Hgb Hct MCV MCH MCHC RDW Plt Count MPV Absolute Neuts (auto) Absolute Lymphs (auto) Absolute Monos (auto) Absolute Eos (auto) Absolute Basos (auto) Neutrophils % Lymphocytes % Monocytes % Eosinophils % Basophils % PT INR PTT (SP) D-Dimer, Quantitative Sodium 136 Potassium 7.9 H* Chloride 101 Carbon Dioxide 11 L* Anion Gap 31.9 H BUN 41 H Creatinine 4.09 H BUN/Creatinine Ratio 10.0 Random Glucose 88 Serum Osmolality 281.5 Lactic Acid 9.0 H* Calcium 7.8 L Magnesium Total Bilirubin AST ALT Alkaline Phosphatase Ammonia 56 H* Creatine Kinase CK-MB (CK-2) CK-MB (CK-2) % Troponin I B-Natriuretic Peptide Serum Total Protein Albumin Globulin Albumin/Globulin Ratio Amylase Lipase TSH 11/14/18 13:28 WBC RBC Hgb Hct MCV MCH MCHC RDW Plt Count MPV Absolute Neuts (auto) Absolute Lymphs (auto) Absolute Monos (auto) Absolute Eos (auto) Absolute Basos (auto) Neutrophils % Lymphocytes % Monocytes % Eosinophils % Basophils % PT INR PTT (SP) D-Dimer, Quantitative Sodium Potassium Chloride Carbon Dioxide Anion Gap BUN Creatinine BUN/Creatinine Ratio Random Glucose Serum Osmolality Lactic Acid 9.3 H* Calcium Magnesium Total Bilirubin AST ALT Alkaline Phosphatase Ammonia Creatine Kinase CK-MB (CK-2) CK-MB (CK-2) % Troponin I B-Natriuretic Peptide Serum Total Protein Albumin Globulin Albumin/Globulin Ratio Amylase Lipase TSH CT of abdomen and pelvis shows cirrhosis and a slightly thickened gallbladder that could be consistent with cystitis. No significant ascites. Initial and repeat EKG shows a sinus rhythm at approximately 80 bpm with a first-degree AV block. There is some widening of the QRS complex when compared to previous EKGs. There is some peaking of the T waves in lateral leads. There is also T-wave inversions in 3 and aVF. There is poor R-wave progression in anterior leads. Chest x-ray shows no focal infiltrate. Departure - Departure Clinical Impression: Acute hyperkalemia, Metabolic acidosis, Lactic acidosis, Hypoglycemia, Acute hepatitis Acute renal failure Qualifiers: Acute renal failure type: unspecified Qualified Code(s): N17.9 - Acute kidney failure, unspecified Alcoholic cirrhosis Qualifiers: Ascites presence: without ascites Qualified Code(s): K70.30 - Alcoholic cirrhosis of liver without ascites Disposition: Transfer to Hospital Departure Forms: ED Discharge - Pt. Copy, Patient Portal Self Enrollment Referrals: Chelle Quiñonez NP [Primary Care Provider] - 1-2 Weeks Home Medications: Ambulatory Orders Clonidine HCl 0.1 mg PO DAILY 02/20/18 Lisinopril 40 mg PO DAILY 02/20/18 Metoprolol Tartrate 50 mg PO DAILY 11/14/18 Transfer to Outside Facility - Transfer Information Accepting Provider:: dr barrett Accepting Facility: [facility] Reason for Transfer: required specialist not available
[2018-11-14] MEDS ORDERED: MORPHINE SULFATE INJ 10 MG/ML VIAL IV ONE (15:53)
[2018-11-14 16:16] VITALS: BP 99/63; O2SAT 99
[2018-11-15] MEDS ORDERED: THIAMINE HCL INJ 100 MG/ML VIAL IV ONE (12:39)
== END 2018-11-14 16:45 | disposition short-term general hospital (02) ==
LOC: SUPCPDRO 11:14 → ER 11:14
DX: K70.30 Alcoholic cirrhosis of liver without ascites (principal); N17.9 Acute kidney failure, unspecified; B17.9 Acute viral hepatitis, unspecified; E87.5 Hyperkalemia; E87.2 Acidosis; E16.2 Hypoglycemia, unspecified; I44.0 Atrioventricular block, first degree; R07.9 Chest pain, unspecified; R51 Headache; I10 Essential (primary) hypertension; E07.9 Disorder of thyroid, unspecified; Z79.899 Other long term (current) drug therapy; Z88.0 Allergy status to penicillin
CPT/HCPCS: 36415; 71046; 74176; 80048; 80053; 81001; 82140; 82150; 82550; 82553; 83605; 83690; 83735; 83880; 84443; 84484; 85025; 85379; 85610; 85730; 87040; 93005; 94640; A4216; J1940; J2270; J3411; J7030; J7620; J7799